=== PATIENT | male | born 1985 | race African-American/Black ===

== ENCOUNTER 2016-05-24 04:43 | Emergency (ER) | payer SELFPAY ==
[2016-05-24] MEDS ORDERED: ONDANSETRON HCL INJ/PF 4 MG/2 ML SDV IV ONE (06:48)
[2016-05-24] MEDS ORDERED: NORMAL SALINE 1000 ML 1,000 ML IV ONE ×2 (06:48→08:42)
[2016-05-24 07:20] LABS: ABSOLUTE BASOPHILS # (AUTO) 0.1 10^3/uL (0.0-0.2); ABSOLUTE LYMPHOCYTES (AUTO) 1.9 10^3/uL (0.5-4.7); ABSOLUTE MONOCYTES (AUTO) 1.2 10^3/uL (0.1-1.4); ABSOLUTE NEUT (AUTO) 5.4 10^3/uL (1.7-8.2); EOSINOPHILS % (AUTO) 0.2 % (0-6); HEMATOCRIT 50.1 % (37.9-51.0); HEMOGLOBIN 16.5 g/dL (13.5-17.0); HGB HCT DIFFERENCE -0.6; LYMPHOCYTES % (AUTO) 21.7 % (13-45); MEAN CORPUSCULAR HEMOGLOBIN 24.2 pg (27.0-33.4); MEAN CORPUSCULAR VOLUME 73 fl (80-97); RED BLOOD COUNT 6.84 10^6/uL (4.35-5.55); SEGMENTED NEUTROPHILS % (AUTO) 63.1 % (42-78); WHITE BLOOD COUNT 8.6 10^3/uL (4.0-10.5)
[2016-05-24] MEDS ORDERED: METOCLOPRAMIDE HCL INJ/PF 10 MG/2 ML SDV IV ONE (07:23)
[2016-05-24 07:26] LABS: ADD ON TESTING BLD IN LAB ACKNOWLEDGE
--- NOTE | 2016-05-24 07:32 | ER Document Report ---
ED GI/ - General Chief Complaint: Nausea/Vomiting Stated Complaint: VOMITING Mode of Arrival: Ambulatory Information source: Patient Notes: Patient presents complaining of a day history of nausea and vomiting. Patient states that he has had these type symptoms in the past, but reports that he has not had any marijuana use for the past 3 weeks. Patient denies any fever, diarrhea, or urinary symptoms. Patient complains of generalized abdominal pain from vomiting. TRAVEL OUTSIDE OF THE [place] IN LAST 30 DAYS: No - HPI Patient complains to provider of: Abdominal pain, Vomiting Onset: Other - 8 days Timing/Duration: Worse Quality of pain: Burning Pain Level: 3 Location: Other - Generalized abdomen Sexual history: Active Associated symptoms: Loss of appetite, Nausea, Vomiting. denies: Chest pain, Diarrhea, Dysuria, Urinary hesitancy, Urinary frequency, Urinary retention, Urinary urgency Exacerbated by: Denies Relieved by: Denies Similar symptoms previously: Yes - cyclical vomiting Recently seen / treated by doctor: No - Related Data Allergies/Adverse Reactions: No Known Allergies Allergy (Verified 05/24/16 05:12) Past Medical History - General Information source: Patient - Social History Smoking Status: Never Smoker Chew tobacco use (# tins/day): No Frequency of alcohol use: None Drug Abuse: Marijuana Occupation: [employer] Family History: Reviewed & Not Pertinent Patient has suicidal ideation: No Patient has homicidal ideation: No Pulmonary Medical History: Reports: Hx Asthma Denies: Hx Tuberculosis Renal/ Medical History: Denies: Hx Peritoneal Dialysis GI Medical History: Reports: Other - Cyclical vomiting, heavy marijuana use Psychiatric Medical History: Denies: Hx Depression Surgical Hx: Negative Past Surgical History: Denies: Hx Abdominal Surgery - Immunizations Immunizations up to date: Yes Hx Diphtheria, Pertussis, Tetanus Vaccination: Yes Review of Systems - Review of Systems Constitutional: No symptoms reported. denies: Fever, Recent illness EENT: No symptoms reported Cardiovascular: No symptoms reported. denies: Chest pain Respiratory: No symptoms reported. denies: Cough, Short of breath Gastrointestinal: Abdominal pain, Nausea, Vomiting, Poor fluid intake. denies: Diarrhea Genitourinary: No symptoms reported. denies: Dysuria Male Genitourinary: No symptoms reported Musculoskeletal: No symptoms reported. denies: Back pain Skin: No symptoms reported Hematologic/Lymphatic: No symptoms reported Neurological/Psychological: No symptoms reported Physical Exam - Vital signs Vitals: Temp Pulse Resp BP Pulse Ox 97.8 F 103 H 18 154/114 H 100 05/24/16 05:00 05/24/16 05:00 05/24/16 05:00 05/24/16 05:00 05/24/16 05:00 - General General appearance: Alert In distress: None - HEENT Head: Normocephalic, Atraumatic Eyes: Normal Nasal: Normal Mouth/Lips: Normal Mucous membranes: Dry Pharynx: Normal Neck: Normal, Supple. No: Lymphadenopathy - Respiratory Respiratory status: No respiratory distress Chest status: Nontender Breath sounds: Normal. No: Rales, Rhonchi, Stridor, Wheezing Chest palpation: Normal - Cardiovascular Rhythm: Regular Heart sounds: S1 appreciated, S2 appreciated Murmur: No - Abdominal Inspection: Normal Distension: No distension Bowel sounds: Normal Tenderness: Tender - Generalized abdominal tenderness, no area of focal point tenderness Organomegaly: No organomegaly - Back Back: Normal, Nontender. No: CVA tenderness - Extremities General upper extremity: Normal inspection, Normal strength General lower extremity: Normal inspection, Normal strength - Neurological Neuro grossly intact: Yes Cognition: Normal Orientation: AAOx4 Dre Coma Scale Eye Opening: Spontaneous Dre Coma Scale Verbal: Oriented Dre Coma Scale Motor: Obeys Commands [place] Coma Scale Total: 15 - Psychological Associated symptoms: Normal affect, Normal mood - Skin Skin Temperature: Warm Skin Moisture: Dry Skin Color: Normal Course - Re-evaluation Re-evalutation: 05/24/16 10:50 Abdomen soft, nontender. Patient has been tolerating oral fluids without vomiting. 05/24/16 11:[address] Moss regarding patient presentation. Agrees with discharge plan of care. Patient's previous visits reviewed. Reviewed patient's previous diagnostic studies and labs as well. Patient's visit today is consistent with his previous episodes of cyclical vomiting. Patient does have a previous history of marijuana use - Vital Signs Vital signs: Temp Pulse Resp BP Pulse Ox 98.2 F 72 16 139/79 H 99 05/24/16 11:50 05/24/16 11:50 05/24/16 11:50 05/24/16 11:50 05/24/16 11:50 - Laboratory Result Diagrams: 05/24/16 07:05 05/24/16 07:05 Laboratory results interpreted by me: 05/24/16 05/24/16 05/24/16 07:05 07:05 08:05 RBC 6.84 H MCV 73 L MCH 24.2 L Monocytes % 14.0 H Sodium 134.5 L Potassium 3.3 L Chloride 88 L Carbon Dioxide 31 H Total Bilirubin 2.9 H Urine Protein 30 H Urine Ketones 20 H Urine Urobilinogen 2.0 H 05/24/16 11:14 Labs- Entire Visit 05/24/16 05/24/16 05/24/16 07:05 07:05 07:05 WBC 8.6 RBC 6.84 H Hgb 16.5 Hct 50.1 MCV 73 L MCH 24.2 L MCHC 33.0 RDW 14.0 Plt Count 266 Seg Neutrophils % 63.1 Lymphocytes % 21.7 Monocytes % 14.0 H Eosinophils % 0.2 Basophils % 1.0 Absolute Neutrophils 5.4 Absolute Lymphocytes 1.9 Absolute Monocytes 1.2 Absolute Eosinophils 0.0 Absolute Basophils 0.1 Sodium 134.5 L Potassium 3.3 L Chloride 88 L Carbon Dioxide 31 H Anion Gap 16 BUN 12 Creatinine 0.96 Est GFR ( Amer) > 60 Est GFR (Non-Af Amer) > 60 Glucose 95 Calcium 9.2 Total Bilirubin 2.9 H Direct Bilirubin 0.0 AST 31 ALT 22 Alkaline Phosphatase 74 Total Protein 8.1 Albumin 4.5 Lipase 111.9 Urine Color Urine Appearance Urine pH Ur Specific [place] Urine Protein Urine Glucose (UA) Urine Ketones Urine Blood Urine Nitrite Urine Bilirubin Urine Urobilinogen Ur Leukocyte Esterase Urine WBC (Auto) Urine RBC (Auto) Squamous Epi Cells Auto Urine Mucus (Auto) Urine Ascorbic Acid 05/24/16 08:05 WBC RBC Hgb Hct MCV MCH MCHC RDW Plt Count Seg Neutrophils % Lymphocytes % Monocytes % Eosinophils % Basophils % Absolute Neutrophils Absolute Lymphocytes Absolute Monocytes Absolute Eosinophils Absolute Basophils Sodium Potassium Chloride Carbon Dioxide Anion Gap BUN Creatinine Est GFR ( Amer) Est GFR (Non-Af Amer) Glucose Calcium Total Bilirubin Direct Bilirubin AST ALT Alkaline Phosphatase Total Protein Albumin Lipase Urine Color AGNES Urine Appearance SLIGHTLY-CLOUDY Urine pH 5.0 Ur Specific [place] 1.027 Urine Protein 30 H Urine Glucose (UA) NEGATIVE Urine Ketones 20 H Urine Blood NEGATIVE Urine Nitrite NEGATIVE Urine Bilirubin NEGATIVE Urine Urobilinogen 2.0 H Ur Leukocyte Esterase NEGATIVE Urine WBC (Auto) 4 Urine RBC (Auto) 1 Squamous Epi Cells Auto <1 Urine Mucus (Auto) MOD Urine Ascorbic Acid NEGATIVE 05/24/16 18:35 - Diagnostic Test Radiology reviewed: Reports reviewed Discharge - Discharge Clinical Impression: Hypokalemia, Elevated blood pressure reading, hx cyclical vomiting syndrome Nausea & vomiting Qualifiers: Vomiting type: unspecified Vomiting Intractability: non-intractable Qualified Code(s): R11.2 - Nausea with vomiting, unspecified Condition: Stable Disposition: HOME, SELF-CARE Instructions: Nausea or Vomiting, Nonspecific ([facility]), Abdominal Pain ([facility]), Hypokalemia ([facility]), Intravenous (IV) Fluids ([facility]), Antinausea Medication ([facility]), High Blood Pressure ([facility]) Additional Instructions: Return immediately for any new or worsening symptoms Followup with your primary care provider, call tomorrow to make a followup appointment Follow up with a child development specialist for further evaluation Increase foods rich in potassium in your diet Prescriptions: Omeprazole Magnesium [Prilosec Otc] 20 mg PO DAILY #15 tablet. Ondansetron HCl [Zofran 4 mg Tablet] 1 - 2 tab PO Q6 PRN #15 tablet PRN Reason: Promethazine HCl [Phenergan 25 mg Tablet] 25 mg PO Q6H PRN #12 tablet PRN Reason: Forms: Elevated Blood Pressure, Return to Work Referrals: [facility] [Provider Group] - 05/27/16 CORTES WILLIS MD [ACTIVE STAFF] - Follow up in 3-5 days
[2016-05-24 07:38] LABS: LIPASE 111.9 U/L (23-300)
[2016-05-24 07:40] LABS: ALANINE AMINOTRANSFERASE 22 U/L (21-72); ALBUMIN 4.5 g/dL (3.5-5.0); ALKALINE PHOSPHATASE 74 U/L (38-126); ANION GAP 16 (5-19); ASPARTATE AMINO TRANSFERASE 31 U/L (17-59); BILIRUBIN,TOTAL 2.9 mg/dL (0.2-1.3); BLOOD UREA NITROGEN 12 mg/dL (7-20); CALCIUM 9.2 mg/dL (8.4-10.2); CARBON DIOXIDE 31 mmol/L (22-30); CHLORIDE 88 mmol/L (98-107); CREATININE RESULT 0.96 mg/dL (0.52-1.25); GLUCOSE 95 mg/dL (75-110); POTASSIUM 3.3 mmol/L (3.6-5.0); SODIUM 134.5 mmol/L (137-145); TOTAL PROTEIN 8.1 g/dL (6.3-8.2)
[2016-05-24 08:27] LABS: APPEARANCE,URINE SLIGHTLY-CLOUDY; BILIRUBIN,URINE NEGATIVE (NEGATIVE); GLUCOSE, URINE NEGATIVE (NEGATIVE); KETONES,URINE 20 mg/dL (NEGATIVE); LEUKOCYTE ESTERASE,URINE NEGATIVE (NEGATIVE); NITRITE,URINE NEGATIVE (NEGATIVE); PROTEIN,URINE 30 mg/dL (NEGATIVE); URINE SPECIFIC GRAVITY 1.027
[2016-05-24] MEDS ORDERED: POTASSIUM CHLORIDE 10 MEQ TABLET.SA PO ONE (08:42)
[2016-05-24] MEDS ORDERED: MORPHINE SULFATE 10 MG/ML INJ IV ONE (08:42)
[2016-05-24 13:08] VITALS: BP 139/79
== END 2016-05-24 11:50 | disposition home or self-care (01) ==
LOC: ER 04:43
DX: R11.2 Nausea with vomiting, unspecified (principal); E87.6 Hypokalemia; R03.0 Elevated blood-pressure reading, without diagnosis of hypertension; R10.84 Generalized abdominal pain; R63.0 Anorexia; J45.909 Unspecified asthma, uncomplicated; Z86.69 Personal history of other diseases of the nervous system and sense organs
CPT/HCPCS: 99284; 96361; 96374; 96375; 36415; 83690; 85025; 80053; 81001; 74022; J2765; J2270; J2405; J7030

== ENCOUNTER 2016-10-14 00:31 | Emergency (ER) | payer SELFPAY ==
[2016-10-14 00:45] VITALS: BP 150/110
== END 2016-10-14 01:30 | disposition left against medical advice (07) ==
LOC: ER 00:31
DX: Z53.21 Procedure and treatment not carried out due to patient leaving prior to being seen by health care provider (principal)

== ENCOUNTER 2017-02-18 08:01 | Emergency (ER) | payer SELFPAY ==
[2017-02-18 08:28] VITALS: BP 178/106
== END 2017-02-18 08:45 | disposition left against medical advice (07) ==
LOC: ER 08:01
DX: Z53.9 Procedure and treatment not carried out, unspecified reason (principal); R11.10 Vomiting, unspecified

== ENCOUNTER 2017-05-20 08:06 | Emergency (ER) | payer SELFPAY ==
[2017-05-20] MEDS ORDERED: ONDANSETRON HCL INJ/PF 4 MG/2 ML SDV IV ONE (09:02)
--- NOTE | 2017-05-20 09:05 | ER Document Report ---
ED General - General Chief Complaint: Nausea/Vomiting Stated Complaint: VOMITING Time Seen by Provider: 05/20/17 08:46 TRAVEL OUTSIDE OF THE [place] IN LAST 30 DAYS: No COUNTRY TRAVELED TO/FROM: [place] - [facility] Notes: Patient is a 31-year-old male with a history of vomiting syndrome presents ED cyclical with another acute episode of nausea vomiting 4 days. Patient states that most of his vomiting now is dry heaves and bile. Patient has not noticed any hematemesis. Patient has not been able to keep any fluids or food down over the last several days. Patient states that he does not have any sharp abdominal focal pain. Patient states that he will develop cramping and then vomiting and then the discomfort will resolve. Patient states that he has had several visits to the hospital due to this nausea vomiting issue, but has yet to be seen by wheel and pinion inspector because he does not have any insurance. Patient states that he does smoke marijuana on occasion. Patient denies any IV drug use or drug allergies. He denies any other significant past medical history. No other concerns or complaints. He is urinating normally and having normal bowel movements. Denies any headache, fever, neck pain, URI, sore throat , chest pain, palpitations, syncope, cough, shortness of breath, wheeze, dyspnea , diarrhea, urinary retention, dysuria, hematuria, loss of control of bowel or bladder, numbness/tingling, saddle anesthesia, muscle paralysis/weakness, or rash. - Related Data Allergies/Adverse Reactions: No Known Allergies Allergy (Verified 05/20/17 08:06) Past Medical History - Social History Smoking Status: Never Smoker Family History: Reviewed & Not Pertinent Pulmonary Medical History: Reports: Hx Asthma Denies: Hx Tuberculosis Renal/ Medical History: Denies: Hx Peritoneal Dialysis Psychiatric Medical History: Denies: Hx Depression Past Surgical History: Denies: Hx Abdominal Surgery - Immunizations Immunizations up to date: Yes Hx Diphtheria, Pertussis, Tetanus Vaccination: Yes Review of Systems - Review of Systems Notes: REVIEW OF SYSTEMS: CONSTITUTIONAL : Denies fever, chills, or sweats. Denies recent illness. EENT: Denies eye, ear, throat, or mouth pain or symptoms. Denies nasal or sinus congestion or discharge. Denies throat, tongue, or mouth swelling or difficulty swallowing. CARDIOVASCULAR: Denies chest pain. Denies palpitations or racing or irregular heart beat. Denies ankle edema. RESPIRATORY: Denies cough, cold, or chest congestion. Denies shortness of breath, difficulty breathing, or wheezing. GASTROINTESTINAL: see hpi GENITOURINARY: Denies difficulty urinating, painful urination, burning, frequency, blood in urine, or discharge. MUSCULOSKELETAL: Denies back or neck pain or stiffness. Denies joint pain or swelling. SKIN: Denies rash, lesions or sores. NEUROLOGICAL: Denies confusion or altered mental status. Denies passing out or loss of consciousness. Denies dizziness or lightheadedness. Denies headache. Denies weakness or paralysis or loss of use of either side. Denies problems with gait or speech. Denies sensory loss, numbness, or tingling. Denies seizures. ALL OTHER SYSTEMS REVIEWED AND NEGATIVE. Dictation was performed using [employer] voice recognition software Physical Exam - Vital signs Vitals: Temp Pulse Resp BP Pulse Ox 98.7 F 71 20 162/105 H 100 05/20/17 08:10 05/20/17 08:10 05/20/17 08:10 05/20/17 08:10 05/20/17 08:10 Notes: PHYSICAL EXAMINATION: GENERAL: Well-appearing, well-nourished and in no acute distress. A&Ox4 HEAD: Atraumatic, normocephalic. EYES: Pupils equal round and reactive to light, extraocular movements intact, sclera anicteric, conjunctiva are normal. ENT: Nares patent and without discharge. oropharynx clear without exudates. No tonsilar hypertrophy or erythema. Moist mucous membranes. No sinus tenderness. NECK: Normal range of motion, supple without lymphadenopathy LUNGS: Breath sounds clear to auscultation bilaterally and equal. No wheezes rales or rhonchi. HEART: Regular rate and rhythm without murmurs, rubs, gallops. ABDOMEN: Soft, nontender, nondistended abdomen. No guarding, no rebound. No masses appreciated. Normal bowel sounds present. No CVA tenderness bilaterally. Musculoskeletal: FROM to passive/active. Strength 5+/5. Extremities: No cyanosis, clubbing, or edema b/l. Peripheral pulses 2+. Capillary refill less than 3 seconds. NEUROLOGICAL: Cranial nerves grossly intact. Normal speech, normal gait. Normal sensory, motor exams PSYCH: Normal mood, normal affect. SKIN: Warm, Dry, normal turgor, no rashes or lesions noted. Course - Re-evaluation Re-evalutation: 05/20/17 13:06 Patient is an afebrile, well-hydrated, 31-year-old male who presents to the ED with cyclical vomiting. Vitals are stable. PE is otherwise unremarkable. CBC , CMP, lipase, urinalysis are all unremarkable for any acute pathology. No other imaging warranted at this time based on H&P. Patient was given 2 L normal saline. Patient was also given Zofran and a small dose of morphine. Patient has not vomited while in the ED. Patient states that he continues to be nauseated so Haldol was then given. Patient tolerated p.o. challenge without any difficulties. Pt was non-tender on exam. Low suspicion/risk for acute appendicitis, bowel obstruction, acute cholecystitis, perforated diverticulitis, incarcerated hernia, pancreatitis, perforated ulcer, peritonitis , sepsis, testicular torsion, or other systemic emergent condition at this time. Patient is aware that his condition can change from initial presentation and he needs to monitor symptoms closely and seek medical attention if any acute changes. I will send him home with a prescription for Zofran that he may use as directed/needed. Conservative measures otherwise for symptoms. Recheck with PCM in 3-5 days. Consider consult with a wheel and pinion inspector. Return to the ED with any worsening/concerning symptoms otherwise as reviewed in discharge. Patient is in agreement. - Vital Signs Vital signs: Temp Pulse Resp BP Pulse Ox 98.7 F 71 20 162/105 H 100 05/20/17 09:17 05/20/17 08:10 05/20/17 08:10 05/20/17 08:10 05/20/17 08:10 - Laboratory Result Diagrams: 05/20/17 08:50 05/20/17 10:06 Laboratory results interpreted by me: 05/20/17 05/20/17 05/20/17 08:50 10:06 10:27 RBC 7.03 H Hct 51.8 H MCV 74 L MCH 23.8 L RDW 14.9 H Chloride 97 L Total Bilirubin 2.2 H Direct Bilirubin 0.7 H Albumin 5.1 H Urine Protein 100 H Urine Ketones 20 H Urine Urobilinogen 4.0 H Discharge - Discharge Clinical Impression: Cyclical vomiting Qualifiers: Vomiting Intractability: non-intractable Nausea presence: with nausea Qualified Code(s): G43.A0 - Cyclical vomiting, not intractable Condition: Stable Disposition: HOME, SELF-CARE Instructions: Vomiting ([facility]), Nausea or Vomiting, Nonspecific ([facility]), Antinausea Medication ([facility]) Additional Instructions: Maintain adequate fluid and food intake [place] diet ([employer] Bananas, rice, apples, toast, etc Zofran as needed tylenol if needed Monitor for any worsening symptoms Make sure you are staying hydrated enough to urinate and have normal BM's Recheck with your PCM in 3-5 days Consider consult with Gastroenterology for ongoing/worsening symptoms Return to the ED with any worsening symptoms and/or development of fever, headache, chest pain, palpitations, syncope, shortness of breath, trouble breathing, abdominal pain, n/v/d, blood in stool/urine, weakness, or other worsening symptoms that are concerning to you. Prescriptions: Ondansetron [Zofran Odt 4 mg Tablet] 1 - 2 tab PO Q4H PRN #15 tab.rapdis PRN Reason: For Nausea/Vomiting Forms: Elevated Blood Pressure, Smoking Cessation Education Referrals: JUD VARNER MD [ACTIVE STAFF] - Follow up in 1 week
[2017-05-20 09:13] LABS: ABSOLUTE LYMPHOCYTES (AUTO) 1.3 10^3/uL (0.5-4.7); ABSOLUTE MONOCYTES (AUTO) 0.5 10^3/uL (0.1-1.4); ABSOLUTE NEUT (AUTO) 6.7 10^3/uL (1.7-8.2); BASOPHILS % (AUTO) 0.5 % (0-2); HEMATOCRIT 51.8 % (37.9-51.0); HEMOGLOBIN 16.7 g/dL (13.5-17.0); LYMPHOCYTES % (AUTO) 15.4 % (13-45); MEAN CORPUSCULAR HEMOGLOBIN 23.8 pg (27.0-33.4); MEAN CORPUSCULAR HGB CONC 32.3 g/dL (32.0-36.0); MEAN CORPUSCULAR VOLUME 74 fl (80-97); MONOCYTES % (AUTO) 6.1 % (3-13); PLATELET COUNT 317 10^3/uL (150-450); RED CELL DISTRIBUTION WIDTH 14.9 % (11.5-14.0); TOTAL CELLS COUNTED % (AUTO) 100 %; WHITE BLOOD COUNT 8.6 10^3/uL (4.0-10.5)
[2017-05-20 09:23] LABS: RED BLOOD COUNT 7.03 10^6/uL (4.35-5.55)
[2017-05-20] MEDS: NORMAL SALINE 1000 ML 1,000 ML IV PRN ×2 (09:28→10:30)
[2017-05-20 10:49] LABS: APPEARANCE,URINE SLIGHTLY-CLOUDY; BILIRUBIN,URINE NEGATIVE (NEGATIVE); COLOR,URINE AMBER; GLUCOSE, URINE NEGATIVE (NEGATIVE); KETONES,URINE 20 mg/dL (NEGATIVE); LEUKOCYTE ESTERASE,URINE NEGATIVE (NEGATIVE); NITRITE,URINE NEGATIVE (NEGATIVE); PROTEIN,URINE 100 mg/dL (NEGATIVE); URINE SPECIFIC GRAVITY 1.038
[2017-05-20 10:52] LABS: ALANINE AMINOTRANSFERASE 35 U/L (21-72); ALBUMIN 5.1 g/dL (3.5-5.0); ALKALINE PHOSPHATASE 75 U/L (38-126); ANION GAP 15 (5-19); ASPARTATE AMINO TRANSFERASE 25 U/L (17-59); BILIRUBIN,DIRECT 0.7 mg/dL (0.0-0.4); BILIRUBIN,TOTAL 2.2 mg/dL (0.2-1.3); BLOOD UREA NITROGEN 15 mg/dL (7-20); CALCIUM 9.7 mg/dL (8.4-10.2); CARBON DIOXIDE 26 mmol/L (22-30); CHLORIDE 97 mmol/L (98-107); GLUCOSE 107 mg/dL (75-110); LIPASE 69.1 U/L (23-300); POTASSIUM 4.5 mmol/L (3.6-5.0); SODIUM 137.7 mmol/L (137-145); TOTAL PROTEIN 8.1 g/dL (6.3-8.2)
[2017-05-20] MEDS ORDERED: MORPHINE SULFATE 10 MG/ML INJ IV ONE (11:39)
[2017-05-20] MEDS ORDERED: HALOPERIDOL LACTATE INJ 5 MG/1 ML VIAL IM ONE (13:06)
[2017-05-20] MEDS ORDERED: HALOPERIDOL 5 MG TABLET PO ONE (13:28)
[2017-05-20 13:46] VITALS: BP 120/58
== END 2017-05-20 13:41 | disposition home or self-care (01) ==
LOC: ER 08:06
DX: G43.A0 Cyclical vomiting, in migraine, not intractable (principal)
CPT/HCPCS: 99284; 96361; 96374; 96375; 36415; 83690; 85025; 80053; 81001; J2270; J2405; J7030

== ENCOUNTER 2017-07-12 09:31 | Emergency (ER) | payer SELFPAY ==
[2017-07-12] MEDS ORDERED: ONDANSETRON HCL INJ/PF 4 MG/2 ML SDV IV ONE (09:43)
[2017-07-12] MEDS ORDERED: NORMAL SALINE 1000 ML 1,000 ML IV ONE (09:43)
[2017-07-12] MEDS ORDERED: KETOROLAC TROMETHAMINE INJ/PF 30 MG/1 ML SDV IV ONE (09:44)
--- NOTE | 2017-07-12 09:47 | ER Document Report ---
ED Medical Screen (RME) - General Chief Complaint: Vomiting Stated Complaint: STOMACH PAIN Time Seen by Provider: 07/12/17 09:43 Notes: Patient says that he is having vomiting abdominal pains since Friday. He says that this is a regular recurrence about every 6 months, his most recent being about 4 months ago. This is been happening for about 12 years. He is been seen many times in no positive findings, even on CT scans. Denies diarrhea. Denies fever. No abdominal surgeries. Patient says that he does drink alcohol occasionally and was drinking alcohol before the onset of his symptoms on Friday. TRAVEL OUTSIDE OF THE [place] IN LAST 30 DAYS: No COUNTRY TRAVELED TO/FROM: [place] - Related Data Allergies/Adverse Reactions: No Known Allergies Allergy (Verified 07/12/17 09:32) Past Medical History - Social History Chew tobacco use (# tins/day): No Frequency of alcohol use: Occasional Drug Abuse: None Pulmonary Medical History: Reports: Hx Asthma Denies: Hx Tuberculosis Renal/ Medical History: Denies: Hx Peritoneal Dialysis Psychiatric Medical History: Denies: Hx Depression Past Surgical History: Denies: Hx Abdominal Surgery - Immunizations Immunizations up to date: Yes Hx Diphtheria, Pertussis, Tetanus Vaccination: Yes Physical Exam - Vital signs Vitals: Temp Pulse Resp BP Pulse Ox 98.5 F 82 18 176/105 H 100 07/12/17 09:35 07/12/17 09:35 07/12/17 09:35 07/12/17 09:35 07/12/17 09:35 Course - Vital Signs Vital signs: Temp Pulse Resp BP Pulse Ox 98.5 F 82 18 176/105 H 100 07/12/17 09:35 07/12/17 09:35 07/12/17 09:35 07/12/17 09:35 07/12/17 09:35
[2017-07-12 10:27] LABS: ABSOLUTE BASOPHILS # (AUTO) 0.1 10^3/uL (0.0-0.2); ABSOLUTE LYMPHOCYTES (AUTO) 1.3 10^3/uL (0.5-4.7); ABSOLUTE MONOCYTES (AUTO) 0.4 10^3/uL (0.1-1.4); ABSOLUTE NEUT (AUTO) 5.9 10^3/uL (1.7-8.2); BASOPHILS % (AUTO) 0.7 % (0-2); HEMATOCRIT 49.5 % (37.9-51.0); HEMOGLOBIN 16.1 g/dL (13.5-17.0); LYMPHOCYTES % (AUTO) 16.5 % (13-45); MEAN CORPUSCULAR HGB CONC 32.4 g/dL (32.0-36.0); MEAN CORPUSCULAR VOLUME 74 fl (80-97); MONOCYTES % (AUTO) 5.7 % (3-13); PLATELET COUNT 307 10^3/uL (150-450); RED BLOOD COUNT 6.68 10^6/uL (4.35-5.55); RED CELL DISTRIBUTION WIDTH 14.6 % (11.5-14.0); SEGMENTED NEUTROPHILS % (AUTO) 77.1 % (42-78); TOTAL CELLS COUNTED % (AUTO) 100 %; WHITE BLOOD COUNT 7.7 10^3/uL (4.0-10.5)
--- NOTE | 2017-07-12 10:48 | RADIOLOGY REPORT (SQ) ---
EXAM DESCRIPTION: ACUTE ABDOMEN SERIES COMPLETED DATE/TIME: 07/12/2017 10:37 am REASON FOR STUDY: Abdominal pain and vomiting, recurrent COMPARISON: None. NUMBER OF VIEWS: Three views. TECHNIQUE: Frontal chest, supine abdomen and upright/decubitus abdomen radiographic images acquired. LIMITATIONS: None. FINDINGS: CHEST: Lungs clear of infiltrates. FREE AIR: None. No abnormal gas collections. BOWEL GAS PATTERN: Nonobstructive pattern. No dilated loops or air fluid levels. CALCIFICATIONS: No suspicious calcifications. HARDWARE: None in the abdomen. SOFT TISSUES: No gross mass or suggestion of organomegaly. BONES: No acute fracture. No worrisome bone lesions. OTHER: No other significant finding. IMPRESSION: NO RADIOGRAPHIC EVIDENCE FOR ACUTE ABDOMINAL DISEASE. TECHNICAL DOCUMENTATION: JOB ID: [id number] [employer]- All Rights Reserved Reading location - IP/workstation name: [email or web address]
[2017-07-12 10:50] LABS: ALANINE AMINOTRANSFERASE 36 U/L (21-72); ALBUMIN 5.2 g/dL (3.5-5.0); ALKALINE PHOSPHATASE 80 U/L (38-126); ANION GAP 17 (5-19); ASPARTATE AMINO TRANSFERASE 22 U/L (17-59); BILIRUBIN,DIRECT 0.4 mg/dL (0.0-0.4); BILIRUBIN,TOTAL 2.4 mg/dL (0.2-1.3); BLOOD UREA NITROGEN 13 mg/dL (7-20); CALCIUM 10.2 mg/dL (8.4-10.2); CARBON DIOXIDE 25 mmol/L (22-30); CHLORIDE 93 mmol/L (98-107); GLUCOSE 113 mg/dL (75-110); POTASSIUM 3.9 mmol/L (3.6-5.0); SODIUM 135.3 mmol/L (137-145); TOTAL PROTEIN 8.2 g/dL (6.3-8.2)
[2017-07-12 10:51] LABS: ALCOHOL < 10 mg/dL (NONE DETECTED)
[2017-07-12] MEDS ORDERED: DIPHENHYDRAMINE HCL 50 MG/ML VIAL IV ONE (11:02)
[2017-07-12] MEDS ORDERED: HALOPERIDOL LACTATE INJ 5 MG/1 ML VIAL IV ONE (11:02)
[2017-07-12 11:47] LABS: APPEARANCE,URINE SLIGHTLY-CLOUDY; BILIRUBIN,URINE NEGATIVE (NEGATIVE); COLOR,URINE YELLOW; GLUCOSE, URINE NEGATIVE (NEGATIVE); KETONES,URINE 80 mg/dL (NEGATIVE); LEUKOCYTE ESTERASE,URINE NEGATIVE (NEGATIVE); NITRITE,URINE NEGATIVE (NEGATIVE); PROTEIN,URINE 100 mg/dL (NEGATIVE); URINE SPECIFIC GRAVITY 1.038
[2017-07-12 12:00] LABS: URINE AMPHETAMINES SCREEN NEGATIVE; URINE BARBITURATES SCREEN NEGATIVE; URINE BENZODIAZEPINES SCREEN NEGATIVE; URINE COCAINE SCREEN NEGATIVE; URINE MARIJUANA (THC) SCREEN UNCONFIRMED POSITIVE; URINE METHADONE SCREEN NEGATIVE; URINE PHENCYCLIDINE SCREEN NEGATIVE
--- NOTE | 2017-07-12 12:14 | ER Document Report ---
ED General - General Chief Complaint: Vomiting Stated Complaint: STOMACH PAIN Time Seen by Provider: 07/12/17 09:43 Mode of Arrival: Ambulatory Information source: Patient Notes: 31-year-old male who has had multiple episodes of vomiting which were related to marijuana use presents with complaints of vomiting. Patient notes that he had not used marijuana for approximately 2 , patient denies any fevers or chills admits to intermittent abdominal cramping Patient states he has not slept in 2 days due to the vomiting TRAVEL OUTSIDE OF THE [place] IN LAST 30 DAYS: No COUNTRY TRAVELED TO/FROM: [place] - [facility] Onset: Other Onset/Duration: Persistent Quality of pain: Cramping Severity: Mild Pain Level: 1 Associated symptoms: Nausea, Vomiting Exacerbated by: Denies Relieved by: Denies Similar symptoms previously: Yes Recently seen / treated by doctor: Yes - Related Data Allergies/Adverse Reactions: No Known Allergies Allergy (Verified 07/12/17 09:32) Past Medical History - Social History Smoking Status: Current Some Day Smoker Cigarette use (# per day): Yes Chew tobacco use (# tins/day): No Smoking Education Provided: Yes - Patient counselled regarding cessation for 4 minutes Frequency of alcohol use: Occasional Drug Abuse: Marijuana Family History: Reviewed & Not Pertinent Patient has suicidal ideation: No Patient has homicidal ideation: No Pulmonary Medical History: Reports: Hx Asthma Denies: Hx Tuberculosis Renal/ Medical History: Denies: Hx Peritoneal Dialysis Psychiatric Medical History: Denies: Hx Depression Past Surgical History: Denies: Hx Abdominal Surgery - Immunizations Immunizations up to date: Yes Hx Diphtheria, Pertussis, Tetanus Vaccination: Yes Review of Systems - Review of Systems Notes: REVIEW OF SYSTEMS: CONSTITUTIONAL : Denies fever, chills, or sweats. Denies recent illness. EENT: Denies eye, ear, throat, or mouth pain or symptoms. Denies nasal or sinus congestion or discharge. Denies throat, tongue, or mouth swelling or difficulty swallowing. CARDIOVASCULAR: Denies chest pain. Denies palpitations or racing or irregular heart beat. Denies ankle edema. RESPIRATORY: Denies cough, cold, or chest congestion. Denies shortness of breath, difficulty breathing, or wheezing. GASTROINTESTINAL: Admits to abdominal pain cramping nausea vomiting GENITOURINARY: Denies difficulty urinating, painful urination, burning, frequency, blood in urine, or discharge. MUSCULOSKELETAL: Denies back or neck pain or stiffness. Denies joint pain or swelling. SKIN: Denies rash, lesions or sores. HEMATOLOGIC : Denies easy bruising or bleeding. LYMPHATIC: Denies swollen, enlarged glands. NEUROLOGICAL: Denies confusion or altered mental status. Denies passing out or loss of consciousness. Denies dizziness or lightheadedness. Denies headache. Denies weakness or paralysis or loss of use of either side. Denies problems with gait or speech. Denies sensory loss, numbness, or tingling. Denies seizures. PSYCHIATRIC: Denies anxiety or stress. Denies depression, suicidal ideation, or homicidal ideation. ALL OTHER SYSTEMS REVIEWED AND NEGATIVE. Dictation was performed using [employer] voice recognition software PHYSICAL EXAMINATION: GENERAL: Well-appearing, well-nourished and in no acute distress. HEAD: Atraumatic, normocephalic. EYES: Pupils equal round and reactive to light, extraocular movements intact, sclera anicteric, conjunctiva are normal. ENT: Nares patent, oropharynx clear without exudates. Moist mucous membranes. NECK: Normal range of motion, supple without lymphadenopathy LUNGS: Breath sounds clear to auscultation bilaterally and equal. No wheezes rales or rhonchi. HEART: Regular rate and rhythm without murmurs ABDOMEN: Soft, nontender, nondistended abdomen. No guarding, no rebound. No masses appreciated. Musculoskeletal: Normal range of motion, no pitting or edema. No cyanosis. NEUROLOGICAL: Cranial nerves grossly intact. Normal speech, normal gait. Normal sensory, motor exams PSYCH: Normal mood, normal affect. SKIN: Warm, Dry, normal turgor, no rashes or lesions noted. Physical Exam - Vital signs Vitals: Temp Pulse Resp BP Pulse Ox 98.5 F 82 18 176/105 H 100 07/12/17 09:35 07/12/17 09:35 07/12/17 09:35 07/12/17 09:35 07/12/17 09:35 Course - Re-evaluation Re-evalutation: 07/12/17 15:58 Patient's physical examination is quite benign, he looks well is in no distress , he was given nausea control initially and stated his nausea have resolved but that he had not slept and wanted further nausea medication which would make him drowsy, patient was given Haldol with Benadryl and his symptoms completely resolved. Significant other was in the room we discussed concerns for hyperemesis due to the marijuana use. Patient has not followed up with GI and has been instructed to do so After performing a Medical Screening Examination, I estimate there is LOW risk for ACUTE APPENDICITIS, BOWEL OBSTRUCTION, ACUTE CHOLECYSTITIS, PERFORATED DIVERTICULITIS, INCARCERATED HERNIA, PANCREATITIS, TESTICULAR TORSION or PERFORATED ULCER, thus I consider the discharge disposition reasonable. Also, there is no evidence or peritonitis, sepsis, or toxicity. I have reevaluated this patient multiple times and no significant life threatening changes are noted. The patient and I have discussed the diagnosis and risks, and we agree with discharging home with close follow-up with the understanding that symptoms and presentations can change. We also discussed returning to the Emergency Department immediately if new or worsening symptoms occur. We have discussed the symptoms which are most concerning (e.g., bloody stool, fever, changing or worsening pain, intractable vomiting - standard verbal up date) that necessitate immediate return. - Vital Signs Vital signs: Temp Pulse Resp BP Pulse Ox 98.7 F 62 14 168/90 H 100 07/12/17 12:34 07/12/17 12:34 07/12/17 12:34 07/12/17 12:34 07/12/17 12:34 - Laboratory Result Diagrams: 07/12/17 10:10 07/12/17 10:10 Laboratory results interpreted by me: 07/12/17 07/12/17 07/12/17 10:10 10:10 11:15 RBC 6.68 H MCV 74 L MCH 24.0 L RDW 14.6 H Sodium 135.3 L Chloride 93 L Glucose 113 H Total Bilirubin 2.4 H Albumin 5.2 H Urine Protein 100 H Urine Ketones 80 H Urine Urobilinogen 2.0 H Discharge - Discharge Clinical Impression: Cannabinoid hyperemesis syndrome Nausea & vomiting Qualifiers: Vomiting type: unspecified Vomiting Intractability: non-intractable Qualified Code(s): R11.2 - Nausea with vomiting, unspecified Condition: Stable Disposition: HOME, SELF-CARE Instructions: Vomiting ([facility]) Additional Instructions: Follow up with your physician tomorrow for further care or return to the ED IMMEDIATELY if symptoms worsen or new concerns occur. If you cannot afford to follow up with your primary care physician a list of low cost clinics have been provided at the end of your discharge papers as well. Prescriptions: Promethazine HCl [Phenergan 25 mg Tablet] 1 - 2 tab PO Q6H PRN #15 tablet PRN Reason:
[2017-07-12 12:36] VITALS: BP 168/90
== END 2017-07-12 12:34 | disposition home or self-care (01) ==
LOC: ER 09:31
DX: F12.10 Cannabis abuse, uncomplicated (principal); R11.2 Nausea with vomiting, unspecified; J45.909 Unspecified asthma, uncomplicated; R10.9 Unspecified abdominal pain; F17.210 Nicotine dependence, cigarettes, uncomplicated; Z71.6 Tobacco abuse counseling
CPT/HCPCS: 99406; 99283; 96361; 96374; 96375; 36415; 80307 ×2; 83690; 85025; 80053; 81001; 74022; J1200; J1630; J1885; J2405; J7030

== ENCOUNTER 2017-11-02 08:47 | Emergency (ER) | payer SELFPAY ==
[2017-11-02] MEDS ORDERED: NORMAL SALINE 1000 ML 1,000 ML IV ONE ×2 (09:28→10:53)
[2017-11-02] MEDS ORDERED: DIPHENHYDRAMINE HCL 50 MG/ML VIAL IV ONE ×2 (09:37→12:44)
[2017-11-02 09:59] LABS: ABSOLUTE BASOPHILS # (AUTO) 0.1 10^3/uL (0.0-0.2); ABSOLUTE NEUT (AUTO) 6.4 10^3/uL (1.7-8.2); BASOPHILS % (AUTO) 0.7 % (0-2); HEMATOCRIT 50.7 % (37.9-51.0); HEMOGLOBIN 16.7 g/dL (13.5-17.0); LYMPHOCYTES % (AUTO) 21.5 % (13-45); MEAN CORPUSCULAR HEMOGLOBIN 24.2 pg (27.0-33.4); MEAN CORPUSCULAR HGB CONC 32.9 g/dL (32.0-36.0); MEAN CORPUSCULAR VOLUME 74 fl (80-97); PLATELET COUNT 281 10^3/uL (150-450); RED CELL DISTRIBUTION WIDTH 15.5 % (11.5-14.0); SEGMENTED NEUTROPHILS % (AUTO) 67.8 % (42-78); TOTAL CELLS COUNTED % (AUTO) 100 %; WHITE BLOOD COUNT 9.5 10^3/uL (4.0-10.5)
[2017-11-02 10:12] LABS: ALANINE AMINOTRANSFERASE 29 U/L (21-72); ALBUMIN 5.1 g/dL (3.5-5.0); ALKALINE PHOSPHATASE 71 U/L (38-126); ANION GAP 16 (5-19); ASPARTATE AMINO TRANSFERASE 24 U/L (17-59); BILIRUBIN,DIRECT 0.4 mg/dL (0.0-0.4); BILIRUBIN,TOTAL 2.5 mg/dL (0.2-1.3); BLOOD UREA NITROGEN 14 mg/dL (7-20); CALCIUM 9.7 mg/dL (8.4-10.2); CARBON DIOXIDE 29 mmol/L (22-30); CHLORIDE 96 mmol/L (98-107); GLUCOSE 96 mg/dL (75-110); LIPASE 68.8 U/L (23-300); POTASSIUM 4.1 mmol/L (3.6-5.0); SODIUM 140.5 mmol/L (137-145); TOTAL PROTEIN 8.6 g/dL (6.3-8.2)
[2017-11-02] MEDS ORDERED: HALOPERIDOL LACTATE INJ 5 MG/1 ML VIAL IM ONE (10:19)
--- NOTE | 2017-11-02 10:21 | ER Document Report ---
ED GI/ - General Chief Complaint: Nausea/Vomiting Stated Complaint: VOMITING Time Seen by Provider: 11/02/17 09:13 Mode of Arrival: Ambulatory Information source: Patient Notes: Patient presents with a 3 day history of nausea and vomiting. Patient denies any diarrhea. Patient denies any fever. Patient does report abdominal cramping that is generalized in location. Patient does have a history of cyclical vomiting syndrome associated with marijuana use. Patient states his symptoms started first and then he started smoking marijuana to treat his symptoms. Patient states that his symptoms are typical of episodes that he has had in the past attributed to his cyclical vomiting. TRAVEL OUTSIDE OF THE [place] IN LAST 30 DAYS: No COUNTRY TRAVELED TO/FROM: [place] - [facility] Patient complains to provider of: Abdominal pain, Vomiting Onset: Other - 3 days Timing/Duration: Persistent Quality of pain: Achy Pain Level: 3 Location: Other - Generalized abdomen Associated symptoms: Nausea, Vomiting. denies: Diarrhea, Dizzy, Dysuria, Urinary hesitancy, Urinary frequency, Urinary retention, Urinary urgency Exacerbated by: Denies Relieved by: Denies Similar symptoms previously: Yes Recently seen / treated by doctor: No - Related Data Allergies/Adverse Reactions: No Known Allergies Allergy (Verified 07/12/17 09:32) Past Medical History - General Information source: Patient - Social History Smoking Status: Never Smoker Chew tobacco use (# tins/day): No Frequency of alcohol use: Occasional Drug Abuse: Marijuana Occupation: [employer] Lives with: Spouse/Significant other Family History: Reviewed & Not Pertinent Patient has suicidal ideation: No Patient has homicidal ideation: No Pulmonary Medical History: Reports: Hx Asthma Denies: Hx Tuberculosis Renal/ Medical History: Denies: Hx Peritoneal Dialysis GI Medical History: Reports: Other - Cyclical vomiting Psychiatric Medical History: Denies: Hx Depression Surgical Hx: Negative Past Surgical History: Denies: Hx Abdominal Surgery - Immunizations Immunizations up to date: Yes Hx Diphtheria, Pertussis, Tetanus Vaccination: Yes Review of Systems - Review of Systems Constitutional: No symptoms reported. denies: Fever, Recent illness EENT: No symptoms reported Cardiovascular: No symptoms reported. denies: Chest pain, Syncope, Dizziness Respiratory: No symptoms reported. denies: Cough, Short of breath Gastrointestinal: Abdominal pain, Nausea, Vomiting. denies: Diarrhea Genitourinary: No symptoms reported. denies: Dysuria, Flank pain Male Genitourinary: No symptoms reported Musculoskeletal: No symptoms reported Skin: No symptoms reported Hematologic/Lymphatic: No symptoms reported Neurological/Psychological: No symptoms reported. denies: Headaches Physical Exam - Vital signs Vitals: Temp Pulse Resp BP Pulse Ox 98.6 F 64 16 152/93 H 99 11/02/17 08:48 11/02/17 08:48 11/02/17 08:48 11/02/17 08:48 11/02/17 08:48 - General General appearance: Appears well, Alert In distress: None - HEENT Head: Normocephalic, Atraumatic Eyes: Normal Conjunctiva: Normal Nasal: Normal Mouth/Lips: Normal Mucous membranes: Normal Neck: Normal, Supple. No: Lymphadenopathy - Respiratory Respiratory status: No respiratory distress Chest status: Nontender Breath sounds: Normal. No: Rales, Rhonchi, Stridor, Wheezing Chest palpation: Normal - Cardiovascular Rhythm: Regular Heart sounds: S1 appreciated, S2 appreciated Murmur: No - Abdominal Inspection: Normal Distension: No distension Bowel sounds: Normal Tenderness: Tender - Generalized abdominal tenderness, no focal area of tenderness. No: Guarding Organomegaly: No organomegaly - Back Back: Normal, Nontender. No: CVA tenderness - Extremities General upper extremity: Normal inspection, Normal strength General lower extremity: Normal inspection, Normal strength - Neurological Neuro grossly intact: Yes Cognition: Normal Dre Coma Scale Eye Opening: Spontaneous Dre Coma Scale Verbal: Oriented Dre Coma Scale Motor: Obeys Commands Hickman Coma Scale Total: 15 - Psychological Associated symptoms: Normal affect, Normal mood - Skin Skin Temperature: Warm Skin Moisture: Dry Skin Color: Normal Course - Re-evaluation Re-evalutation: 11/02/17 12:45 Patient reports abdominal pain is improved at this time. Patient does complain of continued nausea although has not had any vomiting during ER stay. 11/02/17 12:[address] Mack regarding patient presentation and reviewed EKG. Recommends cycling a second set of troponin II hours after the first 1 as well as repeating EKG. 11/02/17 13:42 Attempted to consult with Dr. Beckwith regarding patient presentation, Dr. Beckwith will return phone call when available. 11/02/17 14:[address] Beckwith guarding patient presentation, recommends outpatient echo and follow-up tomorrow, also recommends consultation with surgeon for further evaluation of his abdominal pain. Consulted with Dr. Serrano regarding patient presentation. Dr. Serrano advises having a contrasted CT scan performed to further evaluate abdominal pain and then call him with results. 11/02/17 15:56 Patient drinking as oral contrast and complains of continued nausea. Additional medication ordered. 11/02/17 18:[address] Serrano regarding results of CT scan. Dr. Serrano states that he has been by to evaluate patient and patient does not have a surgical abdomen. No additional testing advised at this time. Patient's abdomen soft, nontender. Patient nontoxic in appearance. Patient is requesting to be discharged home. Discussed with patient importance of following up with commercial lines assistant for further evaluation of abnormal EKG here today. Patient with negative troponin cycle 2. Patient without any previous history of any cardiac problems. Patient with heart score of 2, no concern for PE. Patient also advised to follow-up with assistant professor of sociology for further evaluation of his chronic abdominal pain. Patient also given information for [facility] to get established with a primary care provider. Patient presents with abdominal pain without signs of peritonitis or other life- threatening or serious etiology. Patient appears stable for discharge and has been instructed to return immediately if the symptoms worsen in any way, or in 8 -12 hours if not improved for reevaluation. The patient has been instructed to return if the symptoms worsen or change in any way. - Vital Signs Vital signs: Temp Pulse Resp BP Pulse Ox 98.3 F 63 16 145/89 H 100 11/02/17 15:42 11/02/17 15:42 11/02/17 08:48 11/02/17 15:42 11/02/17 15:42 - Laboratory Result Diagrams: 11/02/17 09:49 11/02/17 09:49 Laboratory results interpreted by me: 11/02/17 11/02/17 11/02/17 09:49 09:49 12:40 RBC 6.90 H MCV 74 L MCH 24.2 L RDW 15.5 H Chloride 96 L Total Bilirubin 2.5 H Total Protein 8.6 H Albumin 5.1 H Urine Ketones 20 H Urine Urobilinogen 2.0 H Ur Leukocyte Esterase TRACE H 11/02/17 18:44 Labs- Entire Visit 11/02/17 11/02/17 11/02/17 09:49 09:49 09:49 WBC 9.5 RBC 6.90 H Hgb 16.7 Hct 50.7 MCV 74 L MCH 24.2 L MCHC 32.9 RDW 15.5 H Plt Count 281 Seg Neutrophils % 67.8 Lymphocytes % 21.5 Monocytes % 10.0 Eosinophils % 0.0 Basophils % 0.7 Absolute Neutrophils 6.4 Absolute Lymphocytes 2.0 Absolute Monocytes 1.0 Absolute Eosinophils 0.0 Absolute Basophils 0.1 Sodium 140.5 Potassium 4.1 Chloride 96 L Carbon Dioxide 29 Anion Gap 16 BUN 14 Creatinine 1.11 Est GFR ( Amer) > 60 Est GFR (Non-Af Amer) > 60 Glucose 96 Calcium 9.7 Total Bilirubin 2.5 H Direct Bilirubin 0.4 Neonat Total Bilirubin Not Reportable Neonat Direct Bilirubin Not Reportable Neonat Indirect Bili Not Reportable AST 24 ALT 29 Alkaline Phosphatase 71 Troponin I < 0.012 Total Protein 8.6 H Albumin 5.1 H Lipase 68.8 Urine Color Urine Appearance Urine pH Ur Specific [place] Urine Protein Urine Glucose (UA) Urine Ketones Urine Blood Urine Nitrite Urine Bilirubin Urine Urobilinogen Ur Leukocyte Esterase Urine WBC (Auto) Urine RBC (Auto) U Hyaline Cast (Auto) Squamous Epi Cells Auto Urine Mucus (Auto) Urine Ascorbic Acid Urine Opiates Screen Urine Methadone Screen Ur Barbiturates Screen Ur Phencyclidine Scrn Ur Amphetamines Screen U Benzodiazepines Scrn Urine Cocaine Screen U Marijuana (THC) Screen 11/02/17 11/02/17 11/02/17 12:40 12:40 13:25 WBC RBC Hgb Hct MCV MCH MCHC RDW Plt Count Seg Neutrophils % Lymphocytes % Monocytes % Eosinophils % Basophils % Absolute Neutrophils Absolute Lymphocytes Absolute Monocytes Absolute Eosinophils Absolute Basophils Sodium Potassium Chloride Carbon Dioxide Anion Gap BUN Creatinine Est GFR ( Amer) Est GFR (Non-Af Amer) Glucose Calcium Total Bilirubin Direct Bilirubin Neonat Total Bilirubin Neonat Direct Bilirubin Neonat Indirect Bili AST ALT Alkaline Phosphatase Troponin I < 0.012 Total Protein Albumin Lipase Urine Color YELLOW Urine Appearance CLEAR Urine pH 5.0 Ur Specific [place] 1.017 Urine Protein NEGATIVE Urine Glucose (UA) NEGATIVE Urine Ketones 20 H Urine Blood NEGATIVE Urine Nitrite NEGATIVE Urine Bilirubin NEGATIVE Urine Urobilinogen 2.0 H Ur Leukocyte Esterase TRACE H Urine WBC (Auto) 19 Urine RBC (Auto) 1 U Hyaline Cast (Auto) 1 Squamous Epi Cells Auto <1 Urine Mucus (Auto) OCC Urine Ascorbic Acid NEGATIVE Urine Opiates Screen NEGATIVE Urine Methadone Screen NEGATIVE Ur Barbiturates Screen NEGATIVE Ur Phencyclidine Scrn NEGATIVE Ur Amphetamines Screen NEGATIVE U Benzodiazepines Scrn NEGATIVE Urine Cocaine Screen NEGATIVE U Marijuana (THC) Screen UNCONFIRMED POSITIVE - Diagnostic Test Radiology reviewed: Reports reviewed Discharge - Discharge Clinical Impression: Marijuana abuse, EKG abnormality Nausea & vomiting Qualifiers: Vomiting type: unspecified Vomiting Intractability: non-intractable Qualified Code(s): R11.2 - Nausea with vomiting, unspecified Abdominal pain Qualifiers: Abdominal location: unspecified location Qualified Code(s): R10.9 - Unspecified abdominal pain Condition: Stable Disposition: HOME, SELF-CARE Instructions: Abdominal Pain ([facility]), Antinausea Medication ([facility]), Intravenous ( IV) Fluids ([facility]) Additional Instructions: Return immediately for any new or worsening symptoms Followup with your primary care provider, call tomorrow to make a followup appointment Follow-up with Dr. Beckwith, the commercial lines assistant, he wants you to follow-up and have an outpatient echocardiogram. Call his office tomorrow and let them know that you are seen in the ER today and that he wanted to follow-up with you. Follow-up with a assistant professor of sociology Avoid use of marijuana Prescriptions: Promethazine HCl [Phenergan 25 mg Tablet] 25 mg PO Q6H PRN #15 tablet PRN Reason: Referrals: JUD VARNER MD [ACTIVE STAFF] - Follow up as needed SHAUN MIRAMONTES MD [ACTIVE STAFF] - Follow up as needed SALTY CAAL MD [ACTIVE STAFF] - Follow up tomorrow [facility] [Provider Group] - Follow up tomorrow
[2017-11-02] MEDS ORDERED: HALOPERIDOL 5 MG TABLET PO ONE (10:28)
--- NOTE | 2017-11-02 11:09 | RADIOLOGY REPORT (SQ) ---
EXAM DESCRIPTION: ACUTE ABDOMEN SERIES COMPLETED DATE/TIME: 11/02/2017 11:00 am REASON FOR STUDY: abd pain, vomiting COMPARISON: 07/12/2017. NUMBER OF VIEWS: Three views. TECHNIQUE: Frontal chest, supine abdomen and upright/decubitus abdomen radiographic images acquired. LIMITATIONS: None. FINDINGS: CHEST: Lungs clear of infiltrates. FREE AIR: None. No abnormal gas collections. BOWEL GAS PATTERN: Nonobstructive pattern. No dilated loops or air fluid levels. CALCIFICATIONS: No suspicious calcifications. HARDWARE: None in the abdomen. SOFT TISSUES: No gross mass or suggestion of organomegaly. BONES: No acute fracture. No worrisome bone lesions. OTHER: No other significant finding. IMPRESSION: NO RADIOGRAPHIC EVIDENCE FOR ACUTE ABDOMINAL DISEASE. TECHNICAL DOCUMENTATION: JOB ID: [id number] [employer]- All Rights Reserved Reading location - IP/workstation name: [email or web address]
--- NOTE | 2017-11-02 12:14 | RADIOLOGY REPORT (SQ) ---
EXAM DESCRIPTION: U/S ABDOMEN LIMITED W/O DOP COMPLETED DATE/TIME: 11/02/2017 12:05 pm REASON FOR STUDY: abd pain, vomiting COMPARISON: 10/15/2013. TECHNIQUE: Dynamic and static grayscale images acquired of the right upper quadrant and recorded on PACS. Additional selected color Doppler and spectral images recorded. LIMITATIONS: Study limited due to acoustical interference from fat or from air in the bowel. FINDINGS: PANCREAS: Obscured. LIVER: No masses. Echotexture normal. LIVER VASCULATURE: Normal directional flow of the main portal vein and hepatic veins. GALLBLADDER: No stones. Normal wall thickness. No pericholecystic fluid. ULTRASOUND-DETECTED PATTERSON'S SIGN: Negative. INTRAHEPATIC DUCTS AND COMMON DUCT: CBD and intrahepatic ducts normal caliber. No filling defects. INFERIOR VENA CAVA: Normal flow. AORTA: No aneurysm. RIGHT KIDNEY: Normal size. Normal echogenicity. No solid or suspicious masses. No hydronephrosis. No calcifications. PERITONEAL CAVITY AND RIGHT PLEURAL SPACE: No ascites or effusions. OTHER: No other significant finding. IMPRESSION: NORMAL RIGHT UPPER QUADRANT ULTRASOUND. PANCREAS OBSCURED BY GAS. TECHNICAL DOCUMENTATION: JOB ID: [id number] [employer]- All Rights Reserved Reading location - IP/workstation name: [email or web address]
[2017-11-02 13:44] LABS: URINE AMPHETAMINES SCREEN NEGATIVE; URINE BARBITURATES SCREEN NEGATIVE; URINE BENZODIAZEPINES SCREEN NEGATIVE; URINE COCAINE SCREEN NEGATIVE; URINE MARIJUANA (THC) SCREEN UNCONFIRMED POSITIVE; URINE METHADONE SCREEN NEGATIVE; URINE PHENCYCLIDINE SCREEN NEGATIVE
[2017-11-02 13:46] LABS: APPEARANCE,URINE CLEAR; BILIRUBIN,URINE NEGATIVE (NEGATIVE); COLOR,URINE YELLOW; GLUCOSE, URINE NEGATIVE (NEGATIVE); KETONES,URINE 20 mg/dL (NEGATIVE); LEUKOCYTE ESTERASE,URINE TRACE (NEGATIVE); NITRITE,URINE NEGATIVE (NEGATIVE); PROTEIN,URINE NEGATIVE (NEGATIVE); URINE SPECIFIC GRAVITY 1.017
[2017-11-02 15:49] VITALS: BP 145/89
[2017-11-02] MEDS ORDERED: METOCLOPRAMIDE HCL INJ/PF 10 MG/2 ML SDV IV ONE (15:56)
--- NOTE | 2017-11-02 18:07 | RADIOLOGY REPORT (SQ) ---
EXAM DESCRIPTION: CT ABD/PELVIS WITH IV ORAL COMPLETED DATE/TIME: 11/02/2017 5:40 pm REASON FOR STUDY: epig pain, vomiting COMPARISON: 2014 TECHNIQUE: CT scan of the abdomen and pelvis performed using helical scanning technique with dynamic intravenous contrast injection. No oral contrast. Images reviewed with lung, soft tissue, and bone windows. Reconstructed coronal and sagittal MPR images reviewed. Delayed images for evaluation of the urinary system also acquired. All images stored on PACS. All CT scanners at this facility use dose modulation, iterative reconstruction, and/or weight based d osing when appropriate to reduce radiation dose to as low as reasonably achievable (ALARA). [facility]: Dose Right [facility]: CareDose [facility]: Dose Right [facility]: Teradose 4D [facility]: OffiSync CONTRAST TYPE AND DOSE: contrast/concentration: Isovue 370.00 mg/ml; Total Contrast Delivered: 92.0 ml; Total Saline Delivered: 55.0 ml RENAL FUNCTION: GFR > 60. RADIATION DOSE: CT Rad equipment meets quality standard of care and radiation dose reduction techniq ues were employed. CTDIvol: 8.7 - 12.3 mGy. DLP: 1762 mGy-cm.. LIMITATIONS: None. FINDINGS: LOWER CHEST: No significant findings. No nodules or infiltrates. LIVER: Normal size. No masses. No dilated ducts. SPLEEN: Normal size. No focal lesions. PANCREAS: No masses. No significant calcifications. No adjacent inflammation or peripancreatic fluid collections. Pancreatic duct not dilated. GALLBLADDER: No identified stones by CT criteria. No inflammatory changes to suggest cholecystitis. ADRENAL GLANDS: No significant masses or asymmetry. RIGHT KIDNEY AND URETER: No solid masses. No significant calcification. No hydronephrosis or hydroure ter. LEFT KIDNEY AND URETER: No solid masses. No significant calcification. No hydronephrosis or hydrouret er. AORTA AND VESSELS: No aneurysm. No dissection. Renal arteries, SMA, celiac without stenosis. RETROPERITONEUM: No retroperitoneal adenopathy, hemorrhage or masses. BOWEL AND PERITONEAL CAVITY: No masses or inflammatory changes. No free fluid or peritoneal masses. APPENDIX: Normal. PELVIS: No mass. No free fluid. Normal bladder. ABDOMINAL WALL: No masses. No hernias. BONES: No significant or acute findings. OTHER: No other significant finding. IMPRESSION: NO SIGNIFICANT OR ACUTE FINDING IN THE ABDOMEN OR PELVIS ON CT SCAN WITH IV CONTRAST. TECHNICAL DOCUMENTATION: JOB ID: [id number] Quality ID # [id number]: Final reports with documentation of one or more dose reduction techniques (e.g., Au tomated exposure control, adjustment of the mA and/or kV according to patient size, use of iterative reconstruction technique) 2010 [employer]- All Rights Reserved Reading location - IP/workstation name: [email or web address]
--- NOTE | 2017-11-02 19:43 | PDOC CONSULTATION ---
Consultation Consult Date: 11/02/17 Consult reason:: Nausea and vomiting with abdominal cramps History of Present Illness History of Present Illness: DANNA PIZARRO is a 32 year old male who has been c/o N/V with abdominal cramps past 3 days. 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 He had a CT scan of abd/pelvis with IV and po contrast which was essentially normal. Past Medical History Pulmonary Medical History: Reports: Asthma Denies: Tuberculosis GI Medical History: Reports: Other - Cyclical vomiting Psychiatric Medical History: Denies: Depression Social History Lives with: Spouse/Significant other Smoking Status: Never Smoker Frequency of Alcohol Use: Occasional Hx Recreational Drug Use: Yes Drugs: Marijuana Hx Prescription Drug Abuse: No Family History Family History: Reviewed & Not Pertinent Parental Family History Reviewed: Yes Children Family History Reviewed: No Sibling(s) Family History Reviewed.: No Medication/Allergy Home Medications: Ondansetron [Zofran Odt 4 mg Tablet] 1 tab PO Q4H PRN #15 tab.rapdis 08/06/15 Promethazine HCl [Phenergan 25 mg Tablet] 25 mg PO Q6H PRN #12 tablet 08/06/15 Ondansetron [Zofran Odt 4 mg Tablet] 1 - 2 tab PO Q4H PRN #15 tab.rapdis Promethazine HCl [Phenergan 25 mg Tablet] 25 - 50 mg PO ASDIR PRN #12 tablet Promethazine HCl [Phenergan 25 mg Tablet] 25 mg PO Q6H PRN #15 tablet 03/21/16 Omeprazole Magnesium [Prilosec Otc] 20 mg PO DAILY #15 tablet. 05/24/16 Ondansetron HCl [Zofran 4 mg Tablet] 1 - 2 tab PO Q6 PRN #15 tablet 05/24/16 Promethazine HCl [Phenergan 25 mg Tablet] 25 mg PO Q6H PRN #12 tablet 05/24/16 Ondansetron [Zofran Odt 4 mg Tablet] 1 - 2 tab PO Q4H PRN #15 tab.rapdis Promethazine HCl [Phenergan 25 mg Tablet] 1 - 2 tab PO Q6H PRN #15 tablet Promethazine HCl [Phenergan 25 mg Tablet] 25 mg PO Q6H PRN #15 tablet 11/02/17 Allergies/Adverse Reactions: No Known Allergies Allergy (Verified 07/12/17 09:32) Review of Systems All systems: reviewed and no additional remarkable complaints except as stated - N/V and abdominal cramps Physical Exam Vital Signs: Temp Pulse Resp BP Pulse Ox 98.3 F 63 16 145/89 H 100 11/02/17 15:42 11/02/17 15:42 11/02/17 08:48 11/02/17 15:42 11/02/17 15:42 Intake & Output 11/01/17 11/02/17 11/03/17 06:59 06:59 06:59 Weight 84.9 kg General appearance: PRESENT: no acute distress Eye exam: PRESENT: conjunctiva pink Mouth exam: PRESENT: moist Neck exam: PRESENT: full ROM Respiratory exam: PRESENT: clear to auscultation otoniel Cardiovascular exam: PRESENT: RRR Pulses: PRESENT: normal radial pulses Vascular exam: PRESENT: normal capillary refill GI/Abdominal exam: PRESENT: soft, tenderness - very mild diffuse tenderness Rectal exam: PRESENT: deferred Neurological exam: PRESENT: alert, oriented to person, oriented to place, oriented to time, oriented to situation Psychiatric exam: PRESENT: anxious Skin exam: PRESENT: normal color, warm Results Laboratory Results: 11/02/17 09:49 11/02/17 09:49 11/02/17 11/02/17 11/02/17 09:49 09:49 12:40 WBC 9.5 RBC 6.90 H Hgb 16.7 Hct 50.7 MCV 74 L MCH 24.2 L MCHC 32.9 RDW 15.5 H Plt Count 281 Seg Neutrophils % 67.8 Lymphocytes % 21.5 Monocytes % 10.0 Eosinophils % 0.0 Basophils % 0.7 Absolute Neutrophils 6.4 Absolute Lymphocytes 2.0 Absolute Monocytes 1.0 Absolute Eosinophils 0.0 Absolute Basophils 0.1 Sodium 140.5 Potassium 4.1 Chloride 96 L Carbon Dioxide 29 Anion Gap 16 BUN 14 Creatinine 1.11 Est GFR ( Amer) > 60 Est GFR (Non-Af Amer) > 60 Glucose 96 Calcium 9.7 Total Bilirubin 2.5 H AST 24 ALT 29 Alkaline Phosphatase 71 Total Protein 8.6 H Albumin 5.1 H Lipase 68.8 Urine Color YELLOW Urine Appearance CLEAR Urine pH 5.0 Ur Specific [place] 1.017 Urine Protein NEGATIVE Urine Glucose (UA) NEGATIVE Urine Ketones 20 H Urine Blood NEGATIVE Urine Nitrite NEGATIVE Ur Leukocyte Esterase TRACE H Urine WBC (Auto) 19 Urine RBC (Auto) 1 11/02/17 11/02/17 09:49 13:25 Troponin I < 0.012 < 0.012 Impressions: Abdomen/Pelvis CT 11/02/17 00:00 IMPRESSION: NO SIGNIFICANT OR ACUTE FINDING IN THE ABDOMEN OR PELVIS ON CT SCAN WITH IV CONTRAST. Abdomen Ultrasound 11/02/17 09:35 IMPRESSION: NORMAL RIGHT UPPER QUADRANT ULTRASOUND. PANCREAS OBSCURED BY GAS. Acute Abdomen Series 11/02/17 10:20 IMPRESSION: NO RADIOGRAPHIC EVIDENCE FOR ACUTE ABDOMINAL DISEASE. Assessment & Plan - Time Time Spent: 30 to 50 Minutes - Plan Summary Plan Summary: Has no acute surgical abdomen. Suggest OPD follow up with GI
--- NOTE | 2017-11-02 21:06 | EKG REPORT ---
SEVERITY:- ABNORMAL ECG - SINUS RHYTHM ST ELEVATION SUGGESTS [facility] : Confirmed by: Lucy Marsh 02-Nov-2017 21:06:19
--- NOTE | 2017-11-02 21:08 | EKG REPORT ---
SEVERITY:- ABNORMAL ECG - SINUS RHYTHM CONSIDER LEFT VENTRICULAR HYPERTROPHY ABNORMAL T, PROBABLE ISCHEMIA, WIDESPREAD : Confirmed by: Lucy Marsh 02-Nov-2017 21:07:16
== END 2017-11-02 19:28 | disposition home or self-care (01) ==
LOC: ER 08:47
DX: F12.10 Cannabis abuse, uncomplicated (principal); R94.31 Abnormal electrocardiogram [ECG] [EKG]; R11.2 Nausea with vomiting, unspecified; R10.84 Generalized abdominal pain; G89.29 Other chronic pain; J45.909 Unspecified asthma, uncomplicated
CPT/HCPCS: 93005; 99284; 96361; 96374; 96375; 36415; 83690; 85025; 80053; 81001; 84484; 80307; 74022; 76705; 74177; 93010; J1200; J2765; J7030

== ENCOUNTER 2017-12-31 06:18 | Emergency (ER) | payer SELFPAY ==
[2017-12-31] MEDS ORDERED: PROMETHAZINE HCL INJ 25 MG/1 ML VIAL IM ONE (07:42)
[2017-12-31] MEDS ORDERED: NORMAL SALINE 1000 ML 1,000 ML IV ONE (07:42)
[2017-12-31] MEDS ORDERED: DIPHENHYDRAMINE HCL 50 MG/ML VIAL IV ONE (08:02)
[2017-12-31] MEDS ORDERED: KETOROLAC TROMETHAMINE INJ/PF 30 MG/1 ML SDV IV ONE (08:02)
[2017-12-31] MEDS ORDERED: PROCHLORPERAZINE EDISYLATE INJ 10 MG/2 ML VIAL IV ONE (08:02)
--- NOTE | 2017-12-31 08:06 | ER Document Report ---
ED General - General Chief Complaint: Nausea/Vomiting Stated Complaint: VOMITING Time Seen by Provider: 12/31/17 07:42 TRAVEL OUTSIDE OF THE [place] IN LAST 30 DAYS: No COUNTRY TRAVELED TO/FROM: [place] [facility] Notes: Patient is a 30-year-old male with a history of cyclic vomiting who presents to the ED complaining of an acute exacerbation of cyclic vomiting 1 week. She states that he has had a decreased p.o. intake he has had associated nausea and vomiting with his last episode prior to arrival. Patient states that he started to get a headache this morning which did not start suddenly and did was not 'like a thunder clap.' Patient states that his headache is to his temples and he has had headaches recurrently in this area prior. Patient states that the pain does not radiate. He is otherwise urinating normally and having normal bowel movements. Patient states that he has stopped smoking marijuana, but had a recurrence of his vomiting so he tried it once more without any relief. Patient has not been seen by family provider due to financial issues. Denies any drug allergies. No other concerns or complaints. Denies any fever, head injury, neck pain/stiffness, changes in vision/speech/mentation/hearing, URI, sore throat, chest pain, palpitations, syncope, cough, shortness of breath , wheeze, dyspnea, abdominal pain, diarrhea, urinary retention, dysuria, hematuria, loss of control of bowel or bladder, numbness/tingling, saddle anesthesia, muscle paralysis/weakness, or rash. - Related Data Allergies/Adverse Reactions: No Known Allergies Allergy (Verified 07/12/17 09:32) Past Medical History - Social History Smoking Status: Never Smoker Drug Abuse: Marijuana - occ Family History: Reviewed & Not Pertinent Pulmonary Medical History: Reports: Hx Asthma Denies: Hx Tuberculosis Renal/ Medical History: Denies: Hx Peritoneal Dialysis Psychiatric Medical History: Denies: Hx Depression Past Surgical History: Denies: Hx Abdominal Surgery - Immunizations Immunizations up to date: Yes Hx Diphtheria, Pertussis, Tetanus Vaccination: Yes Review of Systems - Review of Systems -: Yes All other systems reviewed and negative Physical Exam - Vital signs Vitals: Temp Pulse Resp BP Pulse Ox 98.9 F 83 22 H 162/107 H 100 12/31/17 06:24 12/31/17 06:24 12/31/17 06:24 12/31/17 06:24 12/31/17 06:24 - Notes Notes: PHYSICAL EXAMINATION: GENERAL: Well-appearing, well-nourished and in no acute distress. A&Ox4. Answers questions appropriately. HEAD: Atraumatic, normocephalic. Non-tender. EYES: Pupils equal round and reactive to light, extraocular movements intact, sclera anicteric, conjunctiva are normal. No nystagmus. vis garcia intact. ENT: EAC clear b/l. TM's intact b/l without erythema, fluid, or perforation. Nares patent and without discharge. oropharynx clear without exudates. No tonsilar hypertrophy or erythema. Moist mucous membranes. No sinus tenderness. NECK: Normal range of motion, supple without lymphadenopathy. No rigidity/ meningismus. No midline tenderness. LUNGS: Breath sounds clear to auscultation bilaterally and equal. No wheezes rales or rhonchi. HEART: Regular rate and rhythm without murmurs, rubs, gallops. ABDOMEN: Soft, nontender, nondistended abdomen. No guarding, no rebound. Normal bowel sounds present. No CVA tenderness bilaterally. Musculoskeletal: Ext b/l: FROM to passive/active. Strength 5+/5. No deficits noted. No bony tenderness of extremities. Extremities: No cyanosis, clubbing, or edema b/l. Peripheral pulses 2+. Capillary refill less than 2 seconds. NEUROLOGICAL: NIH 0. Cranial nerves grossly intact. Normal speech, normal gait. Normal sensory, motor exams. Reflexes 2+ b/l. JAY's negative. Pronator drift negative. PSYCH: Normal mood, normal affect. SKIN: Warm, Dry, normal turgor, no rashes or lesions noted. Course - Re-evaluation Re-evalutation: 12/31/17 09:49 Patient is an afebrile, well-hydrated, 32-year-old male who presents to the ED nausea and vomiting which I suspect to be a cyclical vomiting episode as well as a headache which I suspect to be tension headache. Vitals are acceptable without any significant tachycardia, tachypnea, or hypoxia. PE is otherwise unremarkable for any focal neurological deficits. Patient's abdomen is soft and nontender. He is nontoxic-appearing and is tolerating p.o. without difficulties. He has not had any episodes of emesis throughout his stay. Patient was given Toradol, Compazine, and Benadryl which resolved his headache and did help with his nausea. Patient was also given fluids. Social work was consulted for this patient. Pt is made aware of his chronically elevated BP and risks associated. CBC, CMP, lipase are unremarkable for acute pathology. No other labs or imaging warranted at this time based on H&P. Low suspicion/ risk for acute intracranial process/bleeding, acute appendicitis, bowel obstruction, acute cholecystitis, perforated diverticulitis, incarcerated hernia , pancreatitis, perforated ulcer, peritonitis, sepsis, testicular torsion, or other systemic emergent condition at this time. Patient is aware that his condition can change from initial presentation and he needs to monitor symptoms closely and seek medical attention if any acute changes. Rx for zofran. Conservative measures otherwise for symptoms. Recheck with PCM in 3-5 days. Consider consult with a multi slide machine tender. Return to the ED with any worsening /concerning symptoms otherwise as reviewed in discharge. Patient is in agreement. - Vital Signs Vital signs: Temp Pulse Resp BP Pulse Ox 98.9 F 87 18 160/107 H 100 12/31/17 06:24 12/31/17 06:25 12/31/17 07:50 12/31/17 06:25 12/31/17 06:25 - Laboratory Result Diagrams: 12/31/17 08:13 12/31/17 08:13 Laboratory results interpreted by me: 12/31/17 12/31/17 08:13 08:13 RBC 6.92 H Hct 51.3 H MCV 74 L MCH 24.2 L RDW 15.0 H Sodium 136.3 L Potassium 3.3 L Chloride 91 L Total Bilirubin 3.7 H Direct Bilirubin 0.7 H ALT 20 L Total Protein 9.2 H Discharge - Discharge Clinical Impression: Nausea and vomiting Qualifiers: Vomiting type: cyclical vomiting Vomiting Intractability: non-intractable Qualified Code(s): G43.A0 - Cyclical vomiting, not intractable Headache Qualifiers: Headache type: tension-type Headache chronicity pattern: acute headache Intractability: not intractable Qualified Code(s): G44.209 - Tension-type headache, unspecified, not intractable Condition: Stable Disposition: HOME, SELF-CARE Instructions: Antinausea Medication ([facility]), Headache ([facility]), Vomiting ([facility]) Additional Instructions: Maintain adequate fluid and food intake [place] diet ([facility] Bananas, rice, apples, toast, etc Zofran as needed tylenol if needed Monitor for any worsening symptoms Make sure you are staying hydrated enough to urinate and have normal BM's Recheck with your PCM in 3-5 days Consider consult with Gastroenterology for ongoing/worsening symptoms Return to the ED with any worsening symptoms and/or development of fever, headache, chest pain, palpitations, syncope, shortness of breath, trouble breathing, abdominal pain, n/v/d, blood in stool/urine, weakness, or other worsening symptoms that are concerning to you. Prescriptions: Ondansetron [Zofran Odt 4 mg Tablet] 1 - 2 tab PO Q4H PRN #15 tab.rapdis PRN Reason: For Nausea/Vomiting Forms: Elevated Blood Pressure Referrals: JUD VARNER MD [ACTIVE STAFF] - Follow up as needed [facility] [Provider Group] - Follow up in 3-5 days
[2017-12-31 08:33] LABS: ABSOLUTE BASOPHILS # (AUTO) 0.1 10^3/uL (0.0-0.2); ABSOLUTE LYMPHOCYTES (AUTO) 2.4 10^3/uL (0.5-4.7); ABSOLUTE MONOCYTES (AUTO) 1.1 10^3/uL (0.1-1.4); ABSOLUTE NEUT (AUTO) 5.1 10^3/uL (1.7-8.2); EOSINOPHILS % (AUTO) 0.2 % (0-6); HEMATOCRIT 51.3 % (37.9-51.0); HEMOGLOBIN 16.7 g/dL (13.5-17.0); LYMPHOCYTES % (AUTO) 27.7 % (13-45); MEAN CORPUSCULAR HEMOGLOBIN 24.2 pg (27.0-33.4); MEAN CORPUSCULAR HGB CONC 32.6 g/dL (32.0-36.0); MEAN CORPUSCULAR VOLUME 74 fl (80-97); MONOCYTES % (AUTO) 12.6 % (3-13); PLATELET COUNT 304 10^3/uL (150-450); RED BLOOD COUNT 6.92 10^6/uL (4.35-5.55); SEGMENTED NEUTROPHILS % (AUTO) 58.5 % (42-78); TOTAL CELLS COUNTED % (AUTO) 100 %; WHITE BLOOD COUNT 8.7 10^3/uL (4.0-10.5)
[2017-12-31 09:08] LABS: ALANINE AMINOTRANSFERASE 20 U/L (21-72); ALKALINE PHOSPHATASE 82 U/L (38-126); ANION GAP 16 (5-19); ASPARTATE AMINO TRANSFERASE 27 U/L (17-59); BILIRUBIN,DIRECT 0.7 mg/dL (0.0-0.4); BILIRUBIN,TOTAL 3.7 mg/dL (0.2-1.3); BLOOD UREA NITROGEN 11 mg/dL (7-20); CALCIUM 9.4 mg/dL (8.4-10.2); CARBON DIOXIDE 29 mmol/L (22-30); CHLORIDE 91 mmol/L (98-107); GLUCOSE 93 mg/dL (75-110); LIPASE 75.6 U/L (23-300); POTASSIUM 3.3 mmol/L (3.6-5.0); SODIUM 136.3 mmol/L (137-145); TOTAL PROTEIN 9.2 g/dL (6.3-8.2)
[2017-12-31 10:19] VITALS: BP 141/86
== END 2017-12-31 10:24 | disposition home or self-care (01) ==
LOC: ER 06:18
DX: G43.A0 Cyclical vomiting, in migraine, not intractable (principal); G44.209 Tension-type headache, unspecified, not intractable
CPT/HCPCS: 99284; 96361; 96374; 96375; 36415; 83690; 85025; 80053; J1200; J1885; J0780; J7030

== ENCOUNTER 2018-01-06 21:49 | Emergency (ER) | payer SELFPAY ==
[2018-01-06] MEDS ORDERED: METOCLOPRAMIDE HCL INJ/PF 10 MG/2 ML SDV IV ONE (22:34)
[2018-01-06] MEDS ORDERED: NORMAL SALINE 1000 ML 2,000 ML IV ONE (22:35)
--- NOTE | 2018-01-06 22:36 | ER Document Report ---
ED Medical Screen (RME) - General Chief Complaint: Nausea/Vomiting Stated Complaint: VOMITING Time Seen by Provider: 01/06/18 22:34 Mode of Arrival: Ambulatory Information source: Patient Notes: Patient is a 32-year-old male who presents with chief complaint of vomiting 2 weeks. Patient reports he has these episodes every so often in which he begins vomiting and has high blood pressure. Patient reports the episodes usually only last for about a few days however this time and this has persisted for 2 weeks. Patient reports he has vomited at least 20 times today alone. Denies any history of any abdominal surgeries. Denies any diarrhea. Exam: Generalized tenderness to palpation to abdomen I have greeted and performed a rapid initial assessment of this patient. A comprehensive ED assessment and evaluation of the patient, analysis of test results and completion of the medical decision making process will be conducted by additional ED providers. Dictation of this chart was performed using voice recognition software; therefore, there may be some unintended grammatical errors. TRAVEL OUTSIDE OF THE [place] IN LAST 30 DAYS: No COUNTRY TRAVELED TO/FROM: [place] - Related Data Allergies/Adverse Reactions: No Known Allergies Allergy (Verified 07/12/17 09:32) Past Medical History - Social History Drug Abuse: Marijuana Pulmonary Medical History: Reports: Hx Asthma Denies: Hx Tuberculosis Renal/ Medical History: Denies: Hx Peritoneal Dialysis Psychiatric Medical History: Denies: Hx Depression Past Surgical History: Denies: Hx Abdominal Surgery - Immunizations Immunizations up to date: Yes Hx Diphtheria, Pertussis, Tetanus Vaccination: Yes
[2018-01-06 23:08] LABS: ABSOLUTE BASOPHILS # (AUTO) 0.1 10^3/uL (0.0-0.2); ABSOLUTE LYMPHOCYTES (AUTO) 2.1 10^3/uL (0.5-4.7); ABSOLUTE MONOCYTES (AUTO) 0.7 10^3/uL (0.1-1.4); ABSOLUTE NEUT (AUTO) 3.2 10^3/uL (1.7-8.2); EOSINOPHILS % (AUTO) 0.3 % (0-6); HEMATOCRIT 48.8 % (37.9-51.0); HEMOGLOBIN 16.2 g/dL (13.5-17.0); LYMPHOCYTES % (AUTO) 33.8 % (13-45); MEAN CORPUSCULAR HEMOGLOBIN 24.7 pg (27.0-33.4); MEAN CORPUSCULAR HGB CONC 33.3 g/dL (32.0-36.0); MEAN CORPUSCULAR VOLUME 74 fl (80-97); MONOCYTES % (AUTO) 12.3 % (3-13); PLATELET COUNT 395 10^3/uL (150-450); RED BLOOD COUNT 6.58 10^6/uL (4.35-5.55); RED CELL DISTRIBUTION WIDTH 14.5 % (11.5-14.0); SEGMENTED NEUTROPHILS % (AUTO) 52.6 % (42-78); TOTAL CELLS COUNTED % (AUTO) 100 %; WHITE BLOOD COUNT 6.1 10^3/uL (4.0-10.5)
--- NOTE | 2018-01-06 23:48 | ER Document Report ---
ED GI/ - General Chief Complaint: Nausea/Vomiting Stated Complaint: VOMITING Time Seen by Provider: 01/06/18 22:34 Mode of Arrival: Ambulatory Notes: Patient is a 32-year-old male vomiting 20 times today. He denies fever, diarrhea, headache, denies any particular areas of abdominal pain. He has a history of cyclic vomiting syndrome, he states he has not had marijuana in over 2 weeks but he has had trouble with vomiting for the past 2 weeks. He has not had any surgeries on his abdomen, he denies any daily medications, he denies any other recreational drugs. TRAVEL OUTSIDE OF THE [place] IN LAST 30 DAYS: No COUNTRY TRAVELED TO/FROM: [place] - Related Data Allergies/Adverse Reactions: No Known Allergies Allergy (Verified 07/12/17 09:32) Past Medical History - General Information source: Patient - Social History Smoking Status: Never Smoker Drug Abuse: Marijuana Lives with: Family Family History: Reviewed & Not Pertinent Patient has suicidal ideation: No Patient has homicidal ideation: No Pulmonary Medical History: Reports: Hx Asthma Denies: Hx Tuberculosis Renal/ Medical History: Denies: Hx Peritoneal Dialysis Psychiatric Medical History: Denies: Hx Depression Surgical Hx: Negative Past Surgical History: Denies: Hx Abdominal Surgery - Immunizations Immunizations up to date: Yes Hx Diphtheria, Pertussis, Tetanus Vaccination: Yes Review of Systems - Review of Systems Constitutional: No symptoms reported EENT: No symptoms reported Cardiovascular: No symptoms reported Respiratory: No symptoms reported Gastrointestinal: See HPI Genitourinary: No symptoms reported Male Genitourinary: No symptoms reported Musculoskeletal: No symptoms reported Skin: No symptoms reported Hematologic/Lymphatic: No symptoms reported Neurological/Psychological: No symptoms reported Physical Exam - Vital signs Vitals: Pulse Ox 98 01/06/18 23:25 - Notes Notes: GENERAL: Alert, interacts well. No acute distress. HEAD: Normocephalic, atraumatic. EYES: Pupils equal, round, and reactive to light. Extraocular movements intact. ENT: Oral mucosa dry, otherwise unremarkable oral pharyngeal exam NECK: Full range of motion. Supple. Trachea midline. LUNGS: Clear to auscultation bilaterally, no wheezes, rales, or rhonchi. No respiratory distress. HEART: Regular rate and rhythm. No murmur ABDOMEN: Soft, non-tender. Non-distended. Bowel sounds present in all 4 quadrants. No guarding. EXTREMITIES: Moves all 4 extremities spontaneously. No edema, normal radial and dorsalis pedis pulses bilaterally. No cyanosis. BACK: no cervical, thoracic, lumbar midline tenderness. No saddle anesthesia, normal distal neurovascular exam. NEUROLOGICAL: Alert and oriented x3. Normal speech. [cranial nerves II through XII grossly intact]. PSYCH: Normal affect, normal mood. SKIN: Warm, dry, normal turgor. No rashes or lesions noted. Course - Re-evaluation Re-evalutation: Patient is calm, well-appearing, his abdomen is actually soft, he is not vomiting at bedside. He does have dry mucous membranes. He was given IV fluids , he was given Reglan, after Reglan he states his nausea has significantly improved. CBC unremarkable, chemistry shows mild hypokalemia. Bicarbonate 19. Unremarkable otherwise. Magnesium is unremarkable. Because of patient's lack of tenderness on examination, history of the same, I suspect patient has gastritis after initially having cyclic vomiting syndrome secondary to cannabis abuse. Patient given Carafate, nausea and pain medicine. He tolerated p.o. without any difficulty. Symptoms completely resolved. Patient states he feels really good. Discussed workup, or conditions, expectations, follow-up, and return precautions in detail. Patient states satisfaction and agreement. Stable at time of discharge. - Vital Signs Vital signs: Temp Pulse Resp BP Pulse Ox 98.2 F 18 131/77 H 96 01/07/18 03:00 01/07/18 03:00 01/07/18 03:00 01/07/18 03:00 - Laboratory Result Diagrams: 01/06/18 22:58 01/06/18 23:44 Laboratory results interpreted by me: 01/06/18 01/06/18 22:58 23:44 RBC 6.58 H MCV 74 L MCH 24.7 L RDW 14.5 H Sodium 133.2 L Potassium 3.2 L Chloride 96 L Carbon Dioxide 19 L Total Bilirubin 2.4 H Direct Bilirubin 0.5 H Discharge - Discharge Clinical Impression: Upper abdominal pain Nausea & vomiting Qualifiers: Vomiting type: unspecified Vomiting Intractability: non-intractable Qualified Code(s): R11.2 - Nausea with vomiting, unspecified Condition: Stable Disposition: HOME, SELF-CARE Additional Instructions: Your evaluation and symptoms are consistent with gastritis/esophagitis. This is inflammation of the upper abdominal tract. Take medications as prescribed to heal these areas including Carafate, Pepcid, and Phenergan for nausea. You can also take Tums and Rolaids additionally if needed. Avoid caffeine, spicy food, alcohol, smoking, NSAIDs. Your potassium was slightly low, consider food with potassium such as bananas over the next several days after you can tolerate fluids and bland food without difficulty. Follow-up with primary care. Return if you worsen including uncontrolled vomiting, vomiting blood, black stools, severe abdominal pain, fever, or any other concerning symptoms. Prescriptions: Famotidine [Pepcid 20 mg Tablet] 20 mg PO BID #20 tablet Promethazine HCl [Phenergan 25 mg Tablet] 25 mg PO Q6H PRN #20 tablet PRN Reason: Sucralfate [Carafate 1 gm Tablet] 1 gm PO QID #20 tablet
[2018-01-07 00:14] LABS: ALANINE AMINOTRANSFERASE 30 U/L (21-72); ALBUMIN 4.4 g/dL (3.5-5.0); ALKALINE PHOSPHATASE 74 U/L (38-126); ANION GAP 18 (5-19); ASPARTATE AMINO TRANSFERASE 18 U/L (17-59); BILIRUBIN,DIRECT 0.5 mg/dL (0.0-0.4); BILIRUBIN,TOTAL 2.4 mg/dL (0.2-1.3); BLOOD UREA NITROGEN 9 mg/dL (7-20); CALCIUM 9.1 mg/dL (8.4-10.2); CARBON DIOXIDE 19 mmol/L (22-30); CHLORIDE 96 mmol/L (98-107); GLUCOSE 84 mg/dL (75-110); LIPASE 75.3 U/L (23-300); POTASSIUM 3.2 mmol/L (3.6-5.0); SODIUM 133.2 mmol/L (137-145); TOTAL PROTEIN 7.5 g/dL (6.3-8.2)
[2018-01-07] MEDS ORDERED: NORMAL SALINE 1000 ML 1,000 ML IV ONE (00:59)
[2018-01-07] MEDS ORDERED: SUCRALFATE 1 GM TABLET PO ONE (01:02)
[2018-01-07] MEDS ORDERED: OXYCODONE-ACETAMINOPHEN 5-325 MG TABLET PO ONE (01:02)
[2018-01-07] MEDS ORDERED: PROMETHAZINE HCL 25 MG TABLET PO ONE (01:02)
[2018-01-07] MEDS ORDERED: HYDROCODONE/ACETAMINOPHEN 5-325 MG (6 TAB/ER DISP) PO PRN (02:46)
[2018-01-07 03:03] VITALS: BP 131/77
--- NOTE | 2018-01-07 07:45 | EKG REPORT ---
SEVERITY:- ABNORMAL ECG - SINUS RHYTHM NONSPECIFIC ST-T CHANGES- INFERIOR LEADS [facility] : Confirmed by: Nico Doll MD 07-Jan-2018 07:44:35
== END 2018-01-07 03:13 | disposition home or self-care (01) ==
LOC: ER 21:49
DX: R11.2 Nausea with vomiting, unspecified (principal); R10.10 Upper abdominal pain, unspecified; E87.6 Hypokalemia; F12.10 Cannabis abuse, uncomplicated; J45.909 Unspecified asthma, uncomplicated; Z86.69 Personal history of other diseases of the nervous system and sense organs
CPT/HCPCS: 93005; 99284; 96361; 96374; 36415; 83690; 83735; 85025; 80053; 93010; J2765; J7030 ×2

== ENCOUNTER 2018-02-26 11:43 | Emergency (ER) | payer OTHER ==
[2018-02-26 11:50] VITALS: BP 150/87
[2018-02-26] MEDS ORDERED: DIPH/PERTUSS(ACELL)/TETANUS VAC/PF 0.5 ML SYR (>=10YO) IM ONE (12:16)
[2018-02-26] MEDS ORDERED: CEPHALEXIN 500 MG CAPSULE PO ONE (12:16)
[2018-02-26] MEDS ORDERED: IBUPROFEN 800 MG TABLET PO ONE (12:16)
[2018-02-26] MEDS ORDERED: CIPROFLOXACIN HCL 500 MG TABLET PO ONE (12:16)
--- NOTE | 2018-02-26 12:45 | ER Document Report ---
HPI - HPI Patient complains to provider of: Puncture wound to foot Onset: This afternoon Onset/Duration: Sudden Quality of pain: Achy Pain Level: 3 Context: Patient was at work and accidentally stepped on a nail that went through his boot and sock into the plantar surface of his foot. Patient states that it only went in superficially and did not stick into the bone of his foot. Associated Symptoms: Other - Plantar puncture wound Exacerbated by: Movement Relieved by: Denies Similar symptoms previously: No Recently seen / treated by doctor: No - ROS ROS below otherwise negative: Yes Systems Reviewed and Negative: Yes All other systems reviewed and negative - MUSCULOSKELETAL Musculoskeletal: REPORTS: Extremity pain - DERM Skin Problems: Puncture Wound Past Medical History - General Information source: Patient - Social History Smoking Status: Never Smoker Frequency of alcohol use: Occasional Drug Abuse: None Occupation: [employer], remodeling Lives with: Family Family History: Reviewed & Not Pertinent Patient has suicidal ideation: No Patient has homicidal ideation: No - Medical History Medical History: Negative Pulmonary Medical History: Reports: Hx Asthma Denies: Hx Tuberculosis Renal/ Medical History: Denies: Hx Peritoneal Dialysis Psychiatric Medical History: Denies: Hx Depression Surgical Hx: Negative Past Surgical History: Denies: Hx Abdominal Surgery - Immunizations Immunizations up to date: Yes Hx Diphtheria, Pertussis, Tetanus Vaccination: Yes Vertical Provider Document - CONSTITUTIONAL Agree With Documented VS: Yes Exam Limitations: No Limitations General Appearance: WD/WN, No Apparent Distress - INFECTION CONTROL TRAVEL OUTSIDE OF THE [place] IN LAST 30 DAYS: No COUNTRY TRAVELED TO/FROM: [place] - [facility] HEENT: Atraumatic, Normocephalic - NECK Neck: Normal Inspection - RESPIRATORY Respiratory: No Respiratory Distress - CARDIOVASCULAR Pulses: Normal: Dorsalis pedis - MUSCULOSKELETAL/EXTREMETIES Musculoskeletal/Extremeties: MAEW, FROM, Tender - Tenderness to plantar surface of right foot - NEURO Level of Consciousness: Awake, Alert, Appropriate Motor/Sensory: No Motor Deficit - DERM Integumentary: Warm, Dry Notes: Puncture wound to plantar surface of right foot Course - Re-evaluation Re-evalutation: 02/26/18 12:43 After the foot had soaked in warm soapy water, wound opening was explored, no obvious retained foreign body. - Vital Signs Vital signs: Temp Pulse Resp BP Pulse Ox 98.6 F 79 18 150/87 H 100 02/26/18 11:49 02/26/18 11:49 02/26/18 11:49 02/26/18 11:49 02/26/18 11:49 Discharge - Discharge Clinical Impression: Puncture wound of plantar aspect of foot Qualifiers: Encounter type: initial encounter Laterality: right Qualified Code(s): S91.331A - Puncture wound without foreign body, right foot, initial encounter Condition: Stable Disposition: HOME, SELF-CARE Instructions: Prophylactic Antibiotic ([facility]), Puncture Wound ([facility]), Tetanus Immunization Given ([facility]) Additional Instructions: Return immediately for any new or worsening symptoms Followup with your primary care provider, call tomorrow to make a followup appointment Soak foot in warm soapy water at least 3 times a day for the next 2-3 days Monitor for any signs of infection including increased pain, redness swelling, fever or purulent discharge. Follow-up with orthopedics for any persistent pain or problems Prescriptions: Cephalexin Monohydrate [Keflex 500 mg Capsule] 500 mg PO Q6H 5 Days capsule Ciprofloxacin HCl [Cipro 500 mg Tablet] 500 mg PO BID #10 tablet Naproxen [Naprosyn 250 Nmg Tablet] 1 tab PO BID #14 tablet Forms: Return to Work Referrals: [facility] [Provider Group] - Follow up as needed
== END 2018-02-26 12:55 | disposition home or self-care (01) ==
LOC: ER 11:43
DX: S91.331A Puncture wound without foreign body, right foot, initial encounter (principal); W22.8XXA Striking against or struck by other objects, initial encounter; Y99.0 Civilian activity done for income or pay; Z23 Encounter for immunization
CPT/HCPCS: 90471; 90715; 99283

== ENCOUNTER 2018-09-18 08:18 | Emergency (ER) | payer SELFPAY ==
[2018-09-18] MEDS ORDERED: ONDANSETRON HCL INJ/PF 4 MG/2 ML SDV IV ONE (08:50)
[2018-09-18] MEDS ORDERED: NORMAL SALINE 1000 ML 1,000 ML IV ONE (08:50)
[2018-09-18 09:14] LABS: ABSOLUTE BASOPHILS # (AUTO) 0.1 10^3/uL (0.0-0.2); ABSOLUTE LYMPHOCYTES (AUTO) 2.4 10^3/uL (0.5-4.7); ABSOLUTE MONOCYTES (AUTO) 0.8 10^3/uL (0.1-1.4); ABSOLUTE NEUT (AUTO) 5.9 10^3/uL (1.7-8.2); BASOPHILS % (AUTO) 1.1 % (0-2); EOSINOPHILS % (AUTO) 0.2 % (0-6); HEMATOCRIT 44.7 % (37.9-51.0); HEMOGLOBIN 14.5 g/dL (13.5-17.0); LYMPHOCYTES % (AUTO) 26.2 % (13-45); MEAN CORPUSCULAR HEMOGLOBIN 23.7 pg (27.0-33.4); MEAN CORPUSCULAR HGB CONC 32.4 g/dL (32.0-36.0); MEAN CORPUSCULAR VOLUME 73 fl (80-97); MONOCYTES % (AUTO) 8.7 % (3-13); PLATELET COUNT 308 10^3/uL (150-450); SEGMENTED NEUTROPHILS % (AUTO) 63.8 % (42-78); TOTAL CELLS COUNTED % (AUTO) 100 %; WHITE BLOOD COUNT 9.3 10^3/uL (4.0-10.5)
--- NOTE | 2018-09-18 09:17 | ER Document Report ---
ED General - General Chief Complaint: Abdominal Pain Stated Complaint: VOMITING Time Seen by Provider: 09/18/18 08:49 Primary Care Provider: [facility] [Provider Group] - Follow up in 3-5 days CORTES WILLIS MD [ACTIVE STAFF] - Follow up in 3-5 days TRAVEL OUTSIDE OF THE [place] IN LAST 30 DAYS: No COUNTRY TRAVELED TO/FROM: [place] - [facility] Notes: Patient is a 33 yr old male that presents to the emergency department for chief complaint of vomiting. Patient reports history of cyclic vomiting. He has had vomiting on and off over the last few years. He was told that he needed to see a GI specialist but does not have insurance and has never followed up outside of the emergency room. Patient states he quit smoking marijuana for 6 months and thought that his problem had completely resolved. He then did have one episode of the vomiting well he was not smoking marijuana. This made him believe that his vomiting was unrelated to the marijuana use so he began smoking marijuana again. Patient reports his last dose of marijuana was 5 to 6 days ago. He started vomiting 4 days ago. He reports multiple episodes of emesis daily associated with nausea. He has a burning epigastric pain that occurs when he is vomiting and then completely resolves. He denies any associated fever, chills and diarrhea. He denies any sick contacts. He was taking Phenergan at home which was a leftover prescription but ran out of that today which is why he came to the emergency room. Past Medical History: cyclic vomiting Past Surgical History: negative Social History: occasion THC, daily tobacco, denies ETOH Family History: Reviewed and noncontributory for presenting illness Allergies: Reviewed, see documented allergy list. REVIEW OF SYSTEMS: CONSTITUTIONAL : No fever No chills No diaphoresis No recent illness EENT: No vision changes No congestion No sore throat CARDIOVASCULAR: No chest pain No palpitations RESPIRATORY: No shortness of breath No cough No difficulty breathing GASTROINTESTINAL: abdominal pain nausea vomiting No diarrhea GENITOURINARY: No dysuria No hematuria No difficulty urinating MUSCULOSKELETAL: No back pain No leg pain No arm pain SKIN: No rashes No lesions LYMPHATIC: No swollen, enlarged glands. NEUROLOGICAL: No lightheadedness No headache No weakness No paresthesias PSYCHIATRIC: No anxiety No depression PHYSICAL EXAMINATION: Vital signs reviewed, nursing noted reviewed. GENERAL: Well-appearing, well-nourished and in no acute distress. HEAD: Atraumatic, normocephalic. EYES: Eyes appear normal, extraocular movements intact, sclera anicteric, conjunctiva are normal. ENT: nares patent, oropharynx clear without exudates. dry mucous membranes. NECK: Normal range of motion, supple without lymphadenopathy LUNGS: Breath sounds clear to auscultation bilaterally and equal. No wheezes rales or rhonchi. HEART: Regular rate and rhythm without murmurs ABDOMEN: Soft, mild epigastric tenderness, normoactive bowel sounds. No rebound, guarding, or rigidity. No masses appreciated. EXTREMITIES: Nontender, good range of motion, no pitting or edema. NEUROLOGICAL: No focal neurological deficits. Moves all extremities spontaneously Motor and sensory grossly intact on exam. PSYCH: Normal mood, normal affect. SKIN: Warm, Dry, normal turgor, no rashes or lesions noted on exposed skin - Related Data Allergies/Adverse Reactions: No Known Allergies Allergy (Verified 09/18/18 09:10) Past Medical History - Social History Smoking Status: Never Smoker Frequency of alcohol use: Heavy Drug Abuse: Marijuana Family History: Reviewed & Not Pertinent Patient has suicidal ideation: No Patient has homicidal ideation: No Pulmonary Medical History: Reports: Hx Asthma Denies: Hx Tuberculosis Renal/ Medical History: Denies: Hx Peritoneal Dialysis Psychiatric Medical History: Denies: Hx Depression Past Surgical History: Denies: Hx Abdominal Surgery - Immunizations Immunizations up to date: Yes Hx Diphtheria, Pertussis, Tetanus Vaccination: Yes Physical Exam - Vital signs Vitals: Temp Pulse Resp BP Pulse Ox 98.9 F 82 18 171/110 H 100 09/18/18 08:26 09/18/18 08:26 09/18/18 08:26 09/18/18 08:26 09/18/18 08:26 Course - Re-evaluation Re-evalutation: 09/18/18 09:17 Vitals reviewed. Nursing notes reviewed. Patient's blood pressure is elevated and he states he has had previous elevated blood pressures in the past. He is on telemetry monitoring. Patient given IV fluids and Zofran for symptomatic management. 09/18/18 10:47 Patient did initially deny alcohol consumption to me but tells nursing staff that he does drink alcohol daily. Nursing noted that they attempted to figure out how much daily and he would not specify. 09/18/18 11:47 Patient has a very slight decrease in his sodium levels but did receive IV fluids. He has not had vomiting in the ER. His kidney function is normal and he has no leukocytosis. He was counseled on stopping marijuana as well as alcohol. He was counseled on his elevated blood pressure and told to follow with PCP for close reevaluation. He was discharged in stable condition Laboratory 09/18/18 09/18/18 09/18/18 09:03 09:03 10:44 WBC 9.3 RBC 6.10 H Hgb 14.5 Hct 44.7 MCV 73 L MCH 23.7 L MCHC 32.4 RDW 15.0 H Plt Count 308 Seg Neutrophils % 63.8 Lymphocytes % 26.2 Monocytes % 8.7 Eosinophils % 0.2 Basophils % 1.1 Absolute Neutrophils 5.9 Absolute Lymphocytes 2.4 Absolute Monocytes 0.8 Absolute Eosinophils 0.0 Absolute Basophils 0.1 Sodium Cancelled 136.3 L Potassium Cancelled 3.8 Chloride Cancelled 91 L Carbon Dioxide Cancelled 31 H Anion Gap Cancelled 14 BUN Cancelled 12 Creatinine Cancelled 1.01 Est GFR ( Amer) Cancelled > 60 Est GFR (Non-Af Amer) Cancelled > 60 Glucose Cancelled 105 Calcium Cancelled 9.3 Total Bilirubin Cancelled 1.9 H Direct Bilirubin Cancelled 0.3 Neonat Total Bilirubin Cancelled Not Reportable Neonat Direct Bilirubin Cancelled Not Reportable Neonat Indirect Bili Cancelled Not Reportable AST Cancelled 25 ALT Cancelled 38 Alkaline Phosphatase Cancelled 82 Total Protein Cancelled 7.8 Albumin Cancelled 4.6 Lipase Cancelled 54.2 - Vital Signs Vital signs: Temp Pulse Resp BP Pulse Ox 98.9 F 82 18 171/110 H 100 09/18/18 08:26 09/18/18 08:26 09/18/18 08:26 09/18/18 08:26 09/18/18 08:26 - Laboratory Result Diagrams: 09/18/18 09:03 09/18/18 10:44 Laboratory results interpreted by me: 09/18/18 09/18/18 09:03 10:44 RBC 6.10 H MCV 73 L MCH 23.7 L RDW 15.0 H Sodium 136.3 L Chloride 91 L Carbon Dioxide 31 H Total Bilirubin 1.9 H Discharge - Discharge Clinical Impression: Elevated blood pressure reading Vomiting Qualifiers: Vomiting type: unspecified Vomiting Intractability: non-intractable Nausea presence: with nausea Qualified Code(s): R11.2 - Nausea with vomiting, unspecified Condition: Stable Disposition: HOME, SELF-CARE Instructions: Vomiting ([facility]) Additional Instructions: Please return to the emergency department if you have any worsening, or concern of your symptoms. Please return to the emergency department if you develop chest pain, difficulty breathing, severe abdominal pain, or ongoing vomiting. Please follow-up with your primary care physician in 2-3 days and any other recommended physicians. If prescribed, take all medications as directed. If you have any questions or concerns do not hesitate to return the emergency department for evaluation. Do not smoke marijuana or drink alcohol as these will make your vomiting worse Prescriptions: Ondansetron [Zofran Odt 4 mg Tablet] 1 tab PO Q4H PRN #15 tab.rapdis PRN Reason: For Nausea/Vomiting Forms: Elevated Blood Pressure Referrals: [facility] [Provider Group] - Follow up in 3-5 days CORTES WILLIS MD [ACTIVE STAFF] - Follow up in 3-5 days
[2018-09-18 11:09] LABS: ALANINE AMINOTRANSFERASE 38 U/L (21-72); ALBUMIN 4.6 g/dL (3.5-5.0); ALKALINE PHOSPHATASE 82 U/L (38-126); ANION GAP 14 (5-19); ASPARTATE AMINO TRANSFERASE 25 U/L (17-59); BILIRUBIN,DIRECT 0.3 mg/dL (0.0-0.4); BILIRUBIN,TOTAL 1.9 mg/dL (0.2-1.3); BLOOD UREA NITROGEN 12 mg/dL (7-20); CALCIUM 9.3 mg/dL (8.4-10.2); CARBON DIOXIDE 31 mmol/L (22-30); CHLORIDE 91 mmol/L (98-107); GLUCOSE 105 mg/dL (75-110); LIPASE 54.2 U/L (23-300); POTASSIUM 3.8 mmol/L (3.6-5.0); SODIUM 136.3 mmol/L (137-145); TOTAL PROTEIN 7.8 g/dL (6.3-8.2)
[2018-09-18 12:08] VITALS: BP 165/104
== END 2018-09-18 12:08 | disposition home or self-care (01) ==
LOC: ER 08:18
DX: R03.0 Elevated blood-pressure reading, without diagnosis of hypertension (principal); R11.2 Nausea with vomiting, unspecified
CPT/HCPCS: 99283; 96374; 36415; 83690; 85025; 80053; J2405; J7030

== ENCOUNTER 2018-10-11 07:08 | Emergency (ER) | payer SELFPAY ==
[2018-10-11 08:21] LABS: ABSOLUTE BASOPHILS # (AUTO) 0.1 10^3/uL (0.0-0.2); ABSOLUTE LYMPHOCYTES (AUTO) 1.9 10^3/uL (0.5-4.7); ABSOLUTE MONOCYTES (AUTO) 0.6 10^3/uL (0.1-1.4); ABSOLUTE NEUT (AUTO) 4.4 10^3/uL (1.7-8.2); BASOPHILS % (AUTO) 0.8 % (0-2); EOSINOPHILS % (AUTO) 0.1 % (0-6); HEMOGLOBIN 15.9 g/dL (13.5-17.0); MEAN CORPUSCULAR HEMOGLOBIN 23.7 pg (27.0-33.4); MEAN CORPUSCULAR HGB CONC 32.5 g/dL (32.0-36.0); MEAN CORPUSCULAR VOLUME 73 fl (80-97); MONOCYTES % (AUTO) 8.7 % (3-13); PLATELET COUNT 358 10^3/uL (150-450); RED BLOOD COUNT 6.73 10^6/uL (4.35-5.55); RED CELL DISTRIBUTION WIDTH 14.8 % (11.5-14.0); SEGMENTED NEUTROPHILS % (AUTO) 63.4 % (42-78); TOTAL CELLS COUNTED % (AUTO) 100 %; WHITE BLOOD COUNT 6.9 10^3/uL (4.0-10.5)
[2018-10-11 08:35] LABS: APPEARANCE,URINE SLIGHTLY-CLOUDY; BILIRUBIN,URINE SMALL (NEGATIVE); COLOR,URINE AMBER; GLUCOSE, URINE NEGATIVE (NEGATIVE); KETONES,URINE 80 mg/dL (NEGATIVE); LEUKOCYTE ESTERASE,URINE NEGATIVE (NEGATIVE); NITRITE,URINE NEGATIVE (NEGATIVE); PROTEIN,URINE 100 mg/dL (NEGATIVE); URINE SPECIFIC GRAVITY 1.031
[2018-10-11 08:40] LABS: ALANINE AMINOTRANSFERASE 37 U/L (21-72); ALBUMIN 5.2 g/dL (3.5-5.0); ALKALINE PHOSPHATASE 88 U/L (38-126); ANION GAP 16 (5-19); ASPARTATE AMINO TRANSFERASE 30 U/L (17-59); BILIRUBIN,DIRECT 0.5 mg/dL (0.0-0.4); BILIRUBIN,TOTAL 2.6 mg/dL (0.2-1.3); BLOOD UREA NITROGEN 10 mg/dL (7-20); CALCIUM 10.2 mg/dL (8.4-10.2); CARBON DIOXIDE 28 mmol/L (22-30); CHLORIDE 94 mmol/L (98-107); GLUCOSE 115 mg/dL (75-110); LIPASE 117.7 U/L (23-300); POTASSIUM 3.9 mmol/L (3.6-5.0); SODIUM 138.3 mmol/L (137-145); TOTAL PROTEIN 8.7 g/dL (6.3-8.2)
[2018-10-11] MEDS ORDERED: ONDANSETRON HCL INJ/PF 4 MG/2 ML SDV IV ONE ×2 (09:17→10:42)
[2018-10-11] MEDS ORDERED: NORMAL SALINE 1000 ML 1,000 ML IV ONE ×2 (09:17→10:42)
--- NOTE | 2018-10-11 09:19 | ER Document Report ---
ED Medical Screen (RME) - General Chief Complaint: Nausea/Vomiting Stated Complaint: ABDOMINAL PAIN Time Seen by Provider: 10/11/18 09:16 Mode of Arrival: Ambulatory Information source: Patient Notes: Patient presents complaining of abdominal pain and low back pain with nausea vomiting and headache pain. Patient does have a history of marijuana use in the past with cyclical vomiting. I have greeted and performed a rapid initial assessment of this patient. A comprehensive ED assessment and evaluation of the patient, analysis of test results and completion of the medical decision making process will be conducted by additional ED providers. TRAVEL OUTSIDE OF THE [place] IN LAST 30 DAYS: No COUNTRY TRAVELED TO/FROM: [place] - Related Data Allergies/Adverse Reactions: No Known Allergies Allergy (Verified 09/18/18 09:10) Past Medical History Pulmonary Medical History: Reports: Hx Asthma Denies: Hx Tuberculosis Renal/ Medical History: Denies: Hx Peritoneal Dialysis Psychiatric Medical History: Denies: Hx Depression Past Surgical History: Denies: Hx Abdominal Surgery - Immunizations Immunizations up to date: Yes Hx Diphtheria, Pertussis, Tetanus Vaccination: Yes Physical Exam - Vital signs Vitals: Temp Pulse Resp BP Pulse Ox 98.2 F 83 18 143/127 H 99 10/11/18 07:18 10/11/18 07:18 10/11/18 07:18 10/11/18 07:18 10/11/18 07:18 - Abdominal Tenderness: Tender - Generalized upper abdominal tenderness Course - Vital Signs Vital signs: Temp Pulse Resp BP Pulse Ox 98.2 F 83 18 143/127 H 99 10/11/18 07:18 10/11/18 07:18 10/11/18 07:18 10/11/18 07:18 10/11/18 07:18 - Laboratory Result Diagrams: 10/11/18 08:05 10/11/18 08:05 Laboratory results interpreted by me: 10/11/18 10/11/18 10/11/18 08:05 08:05 08:05 RBC 6.73 H MCV 73 L MCH 23.7 L RDW 14.8 H Chloride 94 L Glucose 115 H Total Bilirubin 2.6 H Direct Bilirubin 0.5 H Total Protein 8.7 H Albumin 5.2 H Urine Protein 100 H Urine Ketones 80 H Urine Bilirubin SMALL H Urine Urobilinogen 4.0 H Urine Ascorbic Acid 20 H
[2018-10-11 09:54] LABS: URINE AMPHETAMINES SCREEN NEGATIVE; URINE BARBITURATES SCREEN NEGATIVE; URINE BENZODIAZEPINES SCREEN NEGATIVE; URINE COCAINE SCREEN NEGATIVE; URINE MARIJUANA (THC) SCREEN UNCONFIRMED POSITIVE; URINE METHADONE SCREEN NEGATIVE; URINE PHENCYCLIDINE SCREEN NEGATIVE
--- NOTE | 2018-10-11 10:48 | ER Document Report ---
ED GI/ - General Chief Complaint: Nausea/Vomiting Stated Complaint: ABDOMINAL PAIN Time Seen by Provider: 10/11/18 09:16 Mode of Arrival: Ambulatory Notes: Patient is here for vomiting. Says he has had this episode of vomiting going on for nearly 3 weeks. He has had problems with vomiting for the past 10 years. W as seen here about 3 weeks ago for the same and discharged on Phenergan as needed. He has been advised in the past that it possibly related to his marijuana use, but patient says is only used marijuana once in the past 6 months. His drug screen is positive for marijuana today. Patient says he vom its up to 10-15 times a day. Does not have diarrhea. In fact, not sure when he had his last bowel movement. Has some lower abdominal discomfort. Has not had a fever. No UTI symptoms. No abdominal surgeries. On no regular medications. TRAVEL OUTSIDE OF THE [place] IN LAST 30 DAYS: No COUNTRY TRAVELED TO/FROM: [place] - Related Data Allergies/Adverse Reactions: No Known Allergies Allergy (Verified 09/18/18 09:10) Past Medical History - General Information source: Patient - Social History Smoking Status: Unknown if Ever Smoked Chew tobacco use (# tins/day): No Frequency of alcohol use: None Drug Abuse: Marijuana Family History: Reviewed & Not Pertinent Patient has suicidal ideation: No Patient has homicidal ideation: No Pulmonary Medical History: Reports: Hx Asthma - Immunizations Immunizations up to date: Yes Hx Diphtheria, Pertussis, Tetanus Vaccination: Yes Review of Systems - Review of Systems Notes: REVIEW OF SYSTEMS: CONSTITUTIONAL : Denies fever. EENT: Denies eye, ear, nose or mouth or throat pain or other symptoms. CARDIOVASCULAR: Denies chest pain. RESPIRATORY: Denies cough, chest congestion, or shortness of breath. GASTROINTESTINAL: See HPI. GENITOURINARY: Denies difficulty or painful urinating, urinary frequency, blood in urine. MUSCULOSKELETAL: Denies back or neck pain. Denies joint pain or swelling. SKIN: Denies rash or skin lesions. NEUROLOGICAL: Denies LOC or altered mental status. Denies headache. Denies sensory loss or motor deficits. ALL OTHER SYSTEMS REVIEWED AND NEGATIVE. Physical Exam - Vital signs Vitals: Temp Pulse Resp BP Pulse Ox 98.2 F 83 18 143/127 H 99 10/11/18 07:18 10/11/18 07:18 10/11/18 07:18 10/11/18 07:18 10/11/18 07:18 Interpretation: Normal, Other - Patient's initial blood pressure was recorded as 143/127, which has to be an invalid blood pressure. Repeat showed a normal pulse pressure 162/91. Notes: PHYSICAL EXAMINATION: GENERAL: Well-appearing, in no acute distress. HEAD: Atraumatic, normocephalic. EYES: Pupils equal round and reactive to light, extraocular movements intact. ENT: oropharynx clear without exudates. Moist mucous membranes. NECK: Normal range of motion, supple. LUNGS: Breath sounds clear and equal bilaterally. HEART: Regular rate and rhythm without murmurs. ABDOMEN: Soft, nontender. No guarding or rebound. No masses. BACK: No tenderness throughout entire back. EXTREMITIES: Normal range of motion without pain. NEUROLOGICAL: Normal speech, normal gait. Normal sensory, motor, and reflex exams. Awake, alert, and oriented x3. Cranial nerves normal. PSYCH: Normal mood, normal affect. SKIN: Warm, dry, no rashes. Course - Re-evaluation Re-evalutation: 10/11/18 10:50 Labs are all normal except for concentrated urine with some ketones. Plan on giving the patient 2 L of saline. I asked the patient if he is the nervous or the patient and he says he is and he thinks that is what may be causing his problem. We discussed marijuana usage and he says he is only used it once in the last 6 months and I think he is being truthful. If that is the case, it is not cyclic vomiting from marijuana. His drug screen does show positive for marijuana, but we know that he can remain positive for weeks. I discussed giving the patient something to relax him such as some Ativan for the next couple weeks and see if that helps his symptoms. I encouraged him to use it sparingly, only when really necessary to not develop a dependence on the medication. - Vital Signs Vital signs: Temp Pulse Resp BP Pulse Ox 98.2 F 83 18 162/91 H 99 10/11/18 07:18 10/11/18 07:18 10/11/18 07:18 10/11/18 10:33 10/11/18 07:18 - Laboratory Result Diagrams: 10/11/18 08:05 10/11/18 08:05 Laboratory results interpreted by me: 10/11/18 10/11/18 10/11/18 08:05 08:05 08:05 RBC 6.73 H MCV 73 L MCH 23.7 L RDW 14.8 H Chloride 94 L Glucose 115 H Total Bilirubin 2.6 H Direct Bilirubin 0.5 H Total Protein 8.7 H Albumin 5.2 H Urine Protein 100 H Urine Ketones 80 H Urine Bilirubin SMALL H Urine Urobilinogen 4.0 H Urine Ascorbic Acid 20 H Discharge - Discharge Clinical Impression: Vomiting, Dehydration, Anxiety Condition: Stable Disposition: HOME, SELF-CARE Additional Instructions: VOMITING: Vomiting (or nausea without vomiting) can be caused by many other different problems. It can mean that something's wrong with the stomach, such as ulcers or inflammation or the intestinal tract, such as appendicitis. But it can also be a symptom of a problem that has nothing to do with the stomach or intestines. Vomiting is common with severe headaches, earaches, tonsillitis, and kidney infections, etc. We see it with pneumonia or heart attacks. Drugs can cause nausea and vomiting. Many abdominal problems cause vomiting; for example, gallstones, kidney stones, pancreatitis, and intestinal obstruction (blocked bowels). In most cases, curing the vomiting depends on fixing the problem that caused it. For temporary relief, we may use an anti-nausea medicine. For home use, we can prescribe suppositories, chewable pills, pills that dissolve in the mouth, or liquid anti-nausea drugs. If the vomiting seems to be caused by a problem in the stomach, acid-suppressing drugs may be prescribed as well. It's important to avoid dehydration. Sip small amounts of clear liquids (soft drinks, tea, broth, etc) . Try to take fluids frequently even if you are vomiting to prevent dehydration. Take increasing amounts of fluid and when liquids are being consumed successfully, advance to small amounts of bland food (toast, soups, mashed potatoes, etc.) until you are able to resume a regular di et. Avoid aspirin, tobacco, and alcohol. If the vomiting worsens, if the problem that's making you vomit worsens, or if there's evidence of bleeding in the stomach (such as black, tarry stool, or bloody or black vomit), you should return immediately. Also, return if abdominal pain worsens or becomes localized to one area or you develop high fever. Call your doctor if you aren't improved in 24 hours. INTRAVENOUS (I V) FLUIDS: As part of your care today, you received intravenous (IV) fluids. IV fluids are administered to patients who are dehydrated or to those who have certain chemical (electrolyte) abnormalities that need correcting. ANTINAUSEA MEDICATION: You have been given a medication to suppress nausea and vomiting. This type of medication can be given as a shot, pill, or suppository. It will usually last for many hours. Pills and shots usually last six to eight hours. For the typical illness, only one or two doses of the medication may be necessary. Mild lightheadedness may occur. This type of medicine can cause drowsiness. Do not drive or operate dangerous machinery while under its influence. Do not mix with alcohol. See your doctor at once if you have muscle spasms or tightness, or uncontrollable motions (particularly of the neck, mouth, or jaw). Persistent vomiting or severe lightheadedness should also be evaluated by the physician. Anxiety The physician feels that some of your health problems are being caused by anxiety. Anxiety affects your health in many ways. Anxiety alone can cause palpitations, sweats, chest pains, abdominal pains, shortness of breath, and headaches. It contributes to ulcer disease, high blood pressure, irritable bowel syndrome, and has been shown to cause flare-ups of many other diseases. Anxiety is not a simple disorder to treat. If the anxiety is due to recent life stresses, you may simply need time to "work through" the changes. If the anxiety is due to an underlying unhappiness with yourself or due to psychiatric disturbance, professional help will be needed. Your physician can refer you for further help if needed. Anti-anxiety medication is occasionally given if the stress is acute or if you are having trouble sleeping. Chronic or frequent use of these medications is not a good idea because the body becomes reliant on it, preventing you from dealing with life's normal stresses. Benzodiazepines You have been given a benzodiazepine medication. Examples of this type of medicine include Valium, Xanax, Librium, Ativan, and Halcion. Benzodiazepines have many uses. Medications of this type are used for insomnia, anxiety, muscle spasms, seizures, and drug and alcohol withdrawal. You may become very drowsy when you first take the medication. You should not drive or operate machinery while under its effects. Do not combine the medication with alcohol, or with any other medication without talking to your doctor. Do not take if without specific instruction from your instructional manager. Some benzodiazepines may have harmful interactions with oral antifungal medicines such as ketoconazole, itraconazole, and nefazodone. If you are taking an antifungal medicine, discuss this with your doctor before taking b enzodiazepines. FOLLOW-UP CARE: If you have been referred to a physician for follow-up care, call the physicians office for an appointment as you were instructed or within the next two days. If you experience worsening or a significant change in your symptoms, notify the physician immediately or return to the Emergency Department at any time for re-evaluation. Prescriptions: Lorazepam [Ativan 1 mg Tablet] 1 mg PO QIDP PRN #40 tab PRN Reason: Promethazine HCl [Phenergan 25 mg Tablet] 1 - 2 tab PO Q6H PRN #30 tablet PRN Reason:
[2018-10-11 13:48] VITALS: BP 174/93
== END 2018-10-11 13:59 | disposition home or self-care (01) ==
LOC: ER 07:08
DX: R11.2 Nausea with vomiting, unspecified (principal); E86.0 Dehydration; F41.9 Anxiety disorder, unspecified; J45.909 Unspecified asthma, uncomplicated; F12.10 Cannabis abuse, uncomplicated
CPT/HCPCS: 96376; 99284; 96374; 36415; 83690; 85025; 80053; 81001; 80307; J2405; J7030

== ENCOUNTER 2019-10-19 10:04 | Emergency (ER) | payer SELFPAY ==
[2019-10-19 11:07] LABS: ABSOLUTE LYMPHOCYTES (AUTO) 1.3 10^3/uL (0.5-4.7); ABSOLUTE MONOCYTES (AUTO) 0.3 10^3/uL (0.1-1.4); ABSOLUTE NEUT (AUTO) 4.5 10^3/uL (1.7-8.2); BASOPHILS % (AUTO) 0.8 % (0-2); EOSINOPHILS % (AUTO) 0.1 % (0-6); HEMATOCRIT 46.9 % (37.9-51.0); HEMOGLOBIN 15.1 g/dL (13.5-17.0); LYMPHOCYTES % (AUTO) 21.3 % (13-45); MEAN CORPUSCULAR HEMOGLOBIN 24.2 pg (27.0-33.4); MEAN CORPUSCULAR HGB CONC 32.3 g/dL (32.0-36.0); MEAN CORPUSCULAR VOLUME 75 fl (80-97); MONOCYTES % (AUTO) 5.4 % (3-13); PLATELET COUNT 297 10^3/uL (150-450); RED BLOOD COUNT 6.26 10^6/uL (4.35-5.55); RED CELL DISTRIBUTION WIDTH 15.8 % (11.5-14.0); SEGMENTED NEUTROPHILS % (AUTO) 72.4 % (42-78); TOTAL CELLS COUNTED % (AUTO) 100 %; WHITE BLOOD COUNT 6.2 10^3/uL (4.0-10.5)
[2019-10-19] MEDS ORDERED: METOCLOPRAMIDE HCL INJ/PF 10 MG/2 ML SDV IV ONE (11:20)
[2019-10-19] MEDS ORDERED: KETOROLAC TROMETHAMINE INJ/PF 30 MG/1 ML SDV IV ONE (11:20)
[2019-10-19] MEDS ORDERED: NORMAL SALINE 1000 ML 1,000 ML IV ONE (11:21)
[2019-10-19 11:22] LABS: ALBUMIN 4.7 g/dL (3.5-5.0); ALKALINE PHOSPHATASE 87 U/L (38-126); ANION GAP 12 (5-19); ASPARTATE AMINO TRANSFERASE 31 U/L (17-59); BILIRUBIN,DIRECT 0.1 mg/dL (0.0-0.4); BILIRUBIN,TOTAL 1.6 mg/dL (0.2-1.3); BLOOD UREA NITROGEN 10 mg/dL (7-20); CALCIUM 9.5 mg/dL (8.4-10.2); CARBON DIOXIDE 28 mmol/L (22-30); CHLORIDE 96 mmol/L (98-107); GLUCOSE 115 mg/dL (75-110); POTASSIUM 3.7 mmol/L (3.6-5.0); TOTAL PROTEIN 7.8 g/dL (6.3-8.2)
--- NOTE | 2019-10-19 11:47 | ER Document Report ---
ED General - General Chief Complaint: Nausea/Vomiting Stated Complaint: VOMITING,ABDOMINAL PAIN Time Seen by Provider: 10/19/19 11:02 Primary Care Provider: YUNIER SOLIS MD [COMMUNITY BASED STAFF] - Follow up as needed Mode of Arrival: Ambulatory Information source: Patient TRAVEL OUTSIDE OF THE [place] IN LAST 30 DAYS: No - HPI Onset: Other - over the last 3 days Onset/Duration: Gradual Quality of pain: Achy, Cramping Severity: Moderate Pain Level: 3 Associated symptoms: Nausea, Vomiting Exacerbated by: Denies Relieved by: Denies Similar symptoms previously: Yes Recently seen / treated by doctor: No Notes: 34 year old male with a history of Chronic Nausea/Vomiting (possibly due to THC use) here in the ER for nausea, vomiting, and abdominal pains for the last 3 days. The patient says he smoked THC shortly before the symptoms started. The patient denies fevers, chills, sweats, focal abdominal pain but he is having some diarrhea/loose stools. The patient denies known sick contacts or recent travel. - Related Data Allergies/Adverse Reactions: No Known Allergies Allergy (Verified 09/18/18 09:10) Past Medical History - General Information source: Patient - Social History Smoking Status: Never Smoker Chew tobacco use (# tins/day): No Frequency of alcohol use: Rare Drug Abuse: Marijuana Family History: Reviewed & Not Pertinent Patient has homicidal ideation: No Pulmonary Medical History: Reports: Hx Asthma Denies: Hx Tuberculosis Renal/ Medical History: Denies: Hx Peritoneal Dialysis Psychiatric Medical History: Denies: Hx Depression Past Surgical History: Denies: Hx Abdominal Surgery - Immunizations Immunizations up to date: Yes Hx Diphtheria, Pertussis, Tetanus Vaccination: Yes Review of Systems - Review of Systems Constitutional: No symptoms reported EENT: No symptoms reported Cardiovascular: No symptoms reported Respiratory: No symptoms reported Gastrointestinal: Abdominal pain, Nausea, Vomiting Genitourinary: No symptoms reported Male Genitourinary: No symptoms reported Musculoskeletal: No symptoms reported Skin: No symptoms reported Hematologic/Lymphatic: No symptoms reported Neurological/Psychological: No symptoms reported -: Yes All other systems reviewed and negative Physical Exam - Vital signs Vitals: Temp Pulse BP Pulse Ox 98.7 F 54 L 179/102 H 100 10/19/19 10:13 10/19/19 10:13 10/19/19 10:13 10/19/19 10:13 - Notes Notes: GENERAL: Well-appearing, well-nourished and in no acute distress. HEAD: Atraumatic, normocephalic. EYES: Pupils equal round and reactive to light, extraocular movements intact, sclera anicteric, conjunctiva are normal. ENT: External ears normal, nares patent, oropharynx clear without exudates. Moist mucous membranes. NECK: Normal range of motion, supple without lymphadenopathy or JVD. LUNGS: Breath sounds clear to auscultation bilaterally and equal. No wheezes rales or rhonchi. HEART: Regular rate and rhythm without murmurs, rubs or gallops. ABDOMEN: Soft, mild diffuse tenderness, normoactive bowel sounds. No guarding, no rebound. No masses appreciated. EXTREMITIES: Normal range of motion, no pitting or edema. No clubbing or cyanosis. NEUROLOGICAL: Cranial nerves II through XII grossly intact. Normal speech, normal gait. PSYCH: Normal mood, normal affect. SKIN: Warm, Dry, normal turgor, no rashes or lesions noted. Course - Re-evaluation Re-evalutation: 10/19/19 11:50 The patient is here in the ER for nausea, vomiting, and abdominal pain in the setting of recently smoking THC. The patient had labs drawn in the ER which were unremarkable. Patient treated with Reglan, Toradol, and Fluids here in the ER. Patient had continued vomiting so Zofran was given. 10/19/19 13:42 Patient is feeling better after treatment in the ER. Patient is now able to tolerate POs and he would like to be discharged. Patient's labs are unremarkable. Will DC patient with a script for Zofran. - Vital Signs Vital signs: Temp Pulse Resp BP Pulse Ox 98.7 F 54 L 179/102 H 100 10/19/19 10:28 10/19/19 10:13 10/19/19 10:13 10/19/19 10:13 - Laboratory Result Diagrams: 10/19/19 10:45 10/19/19 10:45 Laboratory results interpreted by me: 10/19/19 10/19/19 10/19/19 10:45 10:45 12:12 RBC 6.26 H MCV 75 L MCH 24.2 L RDW 15.8 H Sodium 136.0 L Chloride 96 L Glucose 115 H Total Bilirubin 1.6 H Urine Protein 30 H Urine Ketones 100 H Urine Bilirubin SMALL H Urine Urobilinogen 4.0 H Discharge - Discharge Clinical Impression: Nausea & vomiting Qualifiers: Vomiting type: unspecified Vomiting Intractability: non-intractable Qualified Code(s): R11.2 - Nausea with vomiting, unspecified Condition: Stable Disposition: HOME, SELF-CARE Instructions: Nausea or Vomiting, Nonspecific ([facility]) Additional Instructions: Use Zofran as needed for nausea/vomiting. Drink plenty of fluids in the days to come. Follow up with a primary care doctor. If you dont have a primary care doctor, follow up with Dr. Solis or at the [facility]. Consider stopping smoking all together as THC has been linked to cyclical vomiting syndrome. Prescriptions: Ondansetron [Zofran Odt 4 mg Tablet] 1 tab PO Q8H PRN #15 tab.rapdis PRN Reason: For Nausea/Vomiting Referrals: YUNIER SOLIS MD [COMMUNITY BASED STAFF] - Follow up as needed
[2019-10-19] MEDS ORDERED: ONDANSETRON HCL INJ/PF 4 MG/2 ML SDV IV ONE (12:08)
[2019-10-19 12:45] LABS: APPEARANCE,URINE CLEAR; BILIRUBIN,URINE SMALL (NEGATIVE); COLOR,URINE AMBER; GLUCOSE, URINE NEGATIVE (NEGATIVE); KETONES,URINE 100 mg/dL (NEGATIVE)
[2019-10-19 12:46] LABS: LEUKOCYTE ESTERASE,URINE NEGATIVE (NEGATIVE); NITRITE,URINE NEGATIVE (NEGATIVE); PROTEIN,URINE 30 mg/dL (NEGATIVE); URINE SPECIFIC GRAVITY 1.026
[2019-10-19 14:21] VITALS: BP 178/107
== END 2019-10-19 14:24 | disposition home or self-care (01) ==
LOC: ER 10:04
DX: R11.2 Nausea with vomiting, unspecified (principal); R10.9 Unspecified abdominal pain; R10.817 Generalized abdominal tenderness; F12.10 Cannabis abuse, uncomplicated; J45.909 Unspecified asthma, uncomplicated
CPT/HCPCS: 99284; 96361; 96374; 96375; 36415; 83690; 85025; 80053; 81001; J1885; J2765; J2405; J7030